=== PATIENT | female | born 2000 | race Caucasian/White ===

== ENCOUNTER 2020-03-12 14:04 | Emergency (ER) | payer BC ==
[2020-03-12 14:26] VITALS: O2SAT 100
[2020-03-12] MEDS ORDERED: TORAdol 30 mg Injection IM ONE (14:43)
[2020-03-12] MEDS ORDERED: Phenergan 25 MG INJ IM ONE (14:44)
--- NOTE | 2020-03-12 14:49 | ERPHSYRPT ---
- History of Present Illness Source: patient Exam Limitations: no limitations Patient Subjective Stated Complaint: pt reports migraine with history. states she woke yesterday at 0400 with pain behind her right and has taken tylenol and naproxen with no relief. pt reports she did see Dr Dick about some issues with anxiety and fatigue possbily related to her oral control 03/09/20 and is wearing a holter monitor at this time. Triage Nursing Assessment: pt is aox3, pupils perrl, afebrile, resps easy and non labored, cap refill < 3 seconds, radial pulses strong and equal, pt skin pink warm dry. Physician History: 19 yo wf w h/o MGHA presents w L frontal ROA x 1+ day. Pain is 7/10 and worse w bright lights/movement/noise. She denies focal weakness/fever/trauma. Symptoms are typical for her ROA's. Timing/Duration: day(s) (1+) Quality: other (Throbbing) Head Pain Location: frontal Severity of Pain-Max: moderate Severity of Pain-Current: moderate Recent Head Trauma: no recent headache/trauma, occasional headaches Modifying Factors: Improves With: exposure to light, movement, noise Associated Symptoms: nausea/vomiting, sensitive to light, No confusion, No dizziness, No fatigue, No facial pain, No fever/chills, No flushing, No light- headedness, No loss of consciousness, No nasal congestion, No nasal drainage, No neck pain, No numbness in legs/feet, No rash, No sweating, No scotoma, No seizures, No sinus infection, No speech problems, No stiff neck, No trouble walking, No vision changes, No visual disturbance, No weakness Previous symptoms: same symptoms as today Allergies/Adverse Reactions: No Known Drug Allergies Allergy (Verified 03/12/20 14:26) Home Medications: Norethindrone-E.estradiol-Iron [Loestrin Fe 1.5-30 Tablet] 1 each PO DAILY 03/12/20 [History] Hx Tetanus, Diphtheria Vaccination/Date Given: Yes Hx Influenza Vaccination/Date Given: No Hx Pneumococcal Vaccination/Date Given: No Immunizations Up to Date: Yes Travel Risk - International Travel Have you traveled outside of the country in past 3 weeks: No - Coronavirus Screening Are you exhibiting any of the following symptoms?: No Close contact with a COVID-19 positive Pt in past 14-21 Days: No - Review of Systems Constitutional: No Symptoms Eyes: Photophobia Ears, Nose, & Throat: No Symptoms Respiratory: No Symptoms Cardiac: No Symptoms Abdominal/Gastrointestinal: No Symptoms Musculoskeletal: No Symptoms Skin: No Symptoms Neurological: Headache Psychological: Anxiety Endocrine: No Symptoms Hematologic/Lymphatic: No Symptoms Immunological/Allergic: No Symptoms - Past Medical History Pertinent Past Medical History: No Neurological History: No Pertinent History ENT History: No Pertinent History Cardiac History: No Pertinent History Respiratory History: No Pertinent History Endocrine Medical History: No Pertinent History Musculoskeletal History: No Pertinent History GI Medical History: No Pertinent History History: No Pertinent History Psycho-Social History: No Pertinent History Female Reproductive Disorders: No Pertinent History - Past Surgical History Past Surgical History: Yes Other Surgical History: tonsils - Social History Smoking Status: Never smoker Exposure to second hand smoke: No Drug Use: none Patient Lives Alone: No Significant Family History: no pertinent family hx - Female History Hx Last Menstrual Period: 03/11/20 Hx Now: No - Nursing Vital Signs Nursing Vital Signs: Initial Vital Signs Temperature 98.1 F 03/12/20 14:15 Pulse Rate 80 03/12/20 14:15 Respiratory Rate 14 03/12/20 14:15 Blood Pressure 139/91 03/12/20 14:15 O2 Sat by Pulse Oximetry 100 03/12/20 14:15 Pain Scale Pain Intensity 7 - Physical Exam General Appearance: no apparent distress Eye Exam: PERRL/EOMI, eyes nml inspection, photophobia Ears, Nose, Throat Exam: normal ENT inspection, TMs normal, pharynx normal, moist mucous membranes Neck Exam: normal inspection, non-tender, supple, full range of motion, No meningismus, No mass, No Brudzinski, No Kernig's, No carotid bruit, No JVD Respiratory Exam: normal breath sounds, lungs clear, airway intact, No respiratory distress Cardiovascular Exam: regular rate/rhythm, normal heart sounds, normal peripheral pulses, No murmur Gastrointestinal/Abdominal Exam: soft, normal bowel sounds, No tenderness Back Exam: normal inspection, normal range of motion, No CVA tenderness, No vertebral tenderness Extremity Exam: normal inspection, normal range of motion Mental Status Exam: alert, oriented x 3, cooperative, No agitated, No uncooperative, 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 hearing, normal speech, PERRL, abnormal eye position, No abnormal gag reflex Coordination/Gait Exam: normal finger to nose, normal gait, normal cerebellar function, negative Romberg's sign Motor/Sensory Exam: no motor deficit, no sensory deficit, no pronator drift, negative Babinski's sign DTR Exam: bicep (R): 2+, bicep (L): 2+, knee (R): 2+, knee (L): 2+ Skin Exam: normal color, warm, dry, No rash Lymphatic Exam: No adenopathy SpO2 Interpretation: normal SpO2: 100 O2 Delivery: Room Air - Course Nursing assessment & vital signs reviewed: Yes Ordered Tests: Medication Summary Discontinued Medications Generic Name Dose Route Start Last Admin Trade Name Sofiya PRN Reason Stop Dose Admin Ketorolac Tromethamine 60 mg 03/12/20 14:43 Toradol 30 Mg Injection IM 03/12/20 14:44 STAT ONE - Progress Progress: improved Progress Note: 03/12/20 14:49 60mg IM Toradol/25mg IM phenergan Counseled pt/family regarding: need for follow-up - Departure Departure Disposition: Home Clinical Impression: Migraine Condition: Stable Critical Care Time: No Referrals: DARON DICK MD [Primary Care Provider] - Instructions: Headache, Adult (DC) Additional Instructions: Return to ER for increasing pain/focal weakness/Temperature greater than 100.5
[2020-03-12] MEDS ORDERED: Phenergan 25 MG INJ ONE (14:59)
[2020-03-12] MEDS ORDERED: TORAdol 30 mg Injection ONE (14:59)
[2020-03-12 15:43] VITALS: BP 113/73; PULSE 70
== END 2020-03-12 15:37 | disposition home or self-care (01) ==
LOC: ED 14:04
DX: G43.909 Migraine, unspecified, not intractable, without status migrainosus (principal)
CPT/HCPCS: 96372; 99284; J1885; J2550

== ENCOUNTER 2020-11-20 14:03 | Emergency (ER) | payer BC ==
[2020-11-20 14:17] VITALS: O2SAT 100
[2020-11-20] MEDS ORDERED: Reglan 10 MG/2 ML IV ONE (14:23)
[2020-11-20] MEDS ORDERED: Dextrose 5% -0.45 NaCl 1000 ML 1,000 ML IV SCH (14:30)
[2020-11-20] MEDS ORDERED: Reglan 10 MG/2 ML ONE (14:31)
[2020-11-20] MEDS ORDERED: Dextrose 5% -0.45 NaCl 1000 ML 1,000 ML IV ONE (14:31)
[2020-11-20 14:33] LABS: Absolute Neutrophil Ct (ANC) 5.32 (1.4-6.9); BASOPHIL % 0.3 % (0.0-0.4); Basophil (Absolute #) 0.02 (0-0.4); Eosinophil % 0.4 % (0.00-5.0); Eosinophil (Absolute #) 0.03 (0-0.5); Hematocrit 35.8 % (35-47); Hemoglobin 11.6 gm/dl (12.0-16.0); Lymphocyte (Absolute #) 1.17 (1.0-4.6); Lymphocytes % 17.1 % (24.0-44.0); Mean Cell Volume 89.9 fl (78-100); Mean Corpuscular Hemoglobin 29.1 pg (26-32); Mean Corpuscular Hgb Concent. 32.4 g/dl (32-36); Mean Platelet Volume 10.6 fl (7.5-11.0); Monocyte (Absolute #) 0.31 (0.0-1.3); Monocytes % 4.5 % (0.0-12.0); Neutrophil % 77.7 % (36.0-66.0); Platelet Count 209 K/mm3 (150-450); Red Blood Count 3.98 M/mm3 (4.1-5.4); Red Cell Distribution Width 14.2 % (11.5-14.0); White Blood Count 6.9 K/mm3 (4.0-10.5)
[2020-11-20 14:43] LABS: ALBUMIN 4.5 g/dL (3.5-5.0); ALKALINE PHOSPHATASE 64 U/L (38-126); ANION GAP 12.8 MEQ/L (5-15); BLOOD UREA NITROGEN 6 mg/dL (7-17); CHLORIDE 103 mmol/L (98-107); Calcium 9.5 mg/dL (8.4-10.2); Carbon Dioxide 24 mmol/L (22-30); Creatinine 1 0.47 mg/dL (0.52-1.04); EST GLOMERULAR FILTRATION RATE > 60.0 ML/MIN; Glucose 77 mg/dL (74-106); Potassium 3.8 mmol/L (3.5-5.1); SGOT/AST 19 U/L (14-36); SGPT/ALT 8 U/L (0-35); SODIUM 136 mmol/L (137-145); Total Protein 7.7 g/dL (6.3-8.2)
--- NOTE | 2020-11-20 14:45 | ERPHSYRPT ---
- History of Present Illness Time Seen by Provider: 11/20/20 14:10 Source: patient Exam Limitations: no limitations Patient Subjective Stated Complaint: Pt stated that she has been vomiting this whole and today she had blood in her vomit, bright red blood Triage Nursing Assessment: Pt brought into the ER by her mom, hypertensive, rates pain as 3 in abdomen from vomiting, states that zofran has quit working on her, Pain with palpatation to the medial lower quadrants, pt has only gained 1 pound this whole Physician History: Patient is a 20-year-old female currently 17 weeks on vitamins presents to our ED for evaluation of blood observed post emesis. Patient states that she has been experiencing nausea and vomiting throughout her with minimal weight gain. Patient called her primary care's office who advised her to come to our ED for an evaluation. Patient currently feels comfortable. No active vomiting. No active pain. Patient has no pelvic pain no vaginal discharge. Patient is here primarily because she feels the Zofran that was given to her earlier during her for nausea and vomiting is not as effective. Patient is otherwise healthy. Patient denies chest pain. No shortness of breath. Mother bedside. They voiced no other complaints concerns at this time. heart tones 130. Timing/Duration: today Severity: mild Modifying Factors: Improves With: other (Vomiting) Associated Symptoms: nausea, vomiting, No abdominal pain Allergies/Adverse Reactions: No Known Drug Allergies Allergy (Verified 11/20/20 14:17) Home Medications: Ondansetron [Ondansetron Odt] 4 mg PO Q8H PRN 11/20/20 [History] Vits W-Ca,Fe,FA(<1Mg) [] 1 each PO DAILY 11/20/20 [History] Hx Tetanus, Diphtheria Vaccination/Date Given: Yes Hx Influenza Vaccination/Date Given: No Hx Pneumococcal Vaccination/Date Given: No Travel Risk - International Travel Have you traveled outside of the country in past 3 weeks: No - Coronavirus Screening Are you exhibiting any of the following symptoms?: No Close contact with a COVID-19 positive Pt in past 14-21 Days: No - Vaccine Status Have you recieved a Covid-19 vaccination: No - Review of Systems Constitutional: No Symptoms, No Fever, No Chills Eyes: No Symptoms Ears, Nose, & Throat: No Symptoms Respiratory: No Symptoms, No Cough, No Dyspnea Cardiac: No Symptoms, No Chest Pain, No Edema, No Syncope Abdominal/Gastrointestinal: No Symptoms, No Abdominal Pain, No Nausea, No Vomiting, No Diarrhea Genitourinary Symptoms: No Symptoms, No Dysuria Musculoskeletal: No Symptoms, No Back Pain, No Neck Pain Skin: No Symptoms, No Rash Neurological: No Symptoms, No Dizziness, No Focal Weakness, No Sensory Changes Psychological: No Symptoms Endocrine: No Symptoms Hematologic/Lymphatic: No Symptoms Immunological/Allergic: No Symptoms All Other Systems: Reviewed and Negative - Past Medical History Pertinent Past Medical History: No Neurological History: No Pertinent History ENT History: No Pertinent History Cardiac History: No Pertinent History Respiratory History: No Pertinent History Endocrine Medical History: No Pertinent History Musculoskeletal History: No Pertinent History GI Medical History: No Pertinent History History: No Pertinent History Psycho-Social History: No Pertinent History Female Reproductive Disorders: No Pertinent History - Past Surgical History Past Surgical History: Yes Other Surgical History: tonsils - Social History Smoking Status: Never smoker Exposure to second hand smoke: No Drug Use: none Patient Lives Alone: No Significant Family History: no pertinent family hx - Female History Hx Now: Yes Expected Date of Delivery: 04/25/21 - Nursing Vital Signs Nursing Vital Signs: Initial Vital Signs Temperature 98.2 F 11/20/20 14:06 Pulse Rate 86 11/20/20 14:06 Blood Pressure 147/82 11/20/20 14:06 O2 Sat by Pulse Oximetry 100 11/20/20 14:06 Pain Scale Pain Intensity 3 - Physical Exam General Appearance: no apparent distress, alert Eye Exam: PERRL/EOMI, eyes nml inspection Ears, Nose, Throat Exam: normal ENT inspection, TMs normal, pharynx normal, moist mucous membranes Neck Exam: normal inspection, non-tender, supple, full range of motion Respiratory Exam: normal breath sounds, lungs clear, No respiratory distress Cardiovascular Exam: regular rate/rhythm, normal heart sounds, normal peripheral pulses Gastrointestinal/Abdomen Exam: soft, normal bowel sounds, No tenderness, No mass Back Exam: normal inspection, normal range of motion, No CVA tenderness, No vertebral tenderness Extremity Exam: normal inspection, normal range of motion, pelvis stable Neurologic Exam: alert, oriented x 3, cooperative, normal mood/affect, nml station & gait, sensation nml, No motor deficits Skin Exam: normal color, warm, dry, No rash Lymphatic Exam: No adenopathy SpO2 Interpretation: normal SpO2: 100 O2 Delivery: Room Air - Course Nursing assessment & vital signs reviewed: Yes Ordered Tests: Active Orders 24 hr Category Date Time Status IV Insertion STAT Care 11/20/20 14:19 Completed CBC W DIFF Stat Lab 11/20/20 14:25 Completed CMP Stat Lab 11/20/20 14:25 Completed MAGNESIUM Stat Lab 11/20/20 14:25 Completed UA W/RFX UR CULTURE Stat Lab 11/20/20 14:29 Completed Medication Summary Discontinued Medications Generic Name Dose Route Start Last Admin Trade Name Freq PRN Reason Stop Dose Admin Dextrose/Sodium Chloride 1,000 mls @ 100 mls/hr 11/20/20 14:30 11/20/20 14:33 Dextrose 5% -0.45 Nacl 1000 Ml IV 12/20/20 14:29 100 mls/hr .Q10H LEON Administration Dextrose/Sodium Chloride Confirm 11/20/20 14:31 Dextrose 5% -0.45 Nacl 1000 Ml Administered 11/20/20 14:32 Dose 1,000 mls @ ud IV .STK-MED ONE Metoclopramide HCl 10 mg 11/20/20 14:23 11/20/20 14:33 Reglan 10 Mg/2 Ml IV 11/20/20 14:24 10 mg STAT ONE Administration Metoclopramide HCl Confirm 11/20/20 14:31 Reglan 10 Mg/2 Ml Administered 11/20/20 14:32 Dose 10 mg .ROUTE .STK-MED ONE Lab/Rad Data: Laboratory Result Diagrams 11/20/20 14:25 11/20/20 14:25 Laboratory Results 11/20/20 11/20/20 11/20/20 Range/Units 14:29 14:25 14:25 WBC (4.0-10.5) K/mm3 RBC (4.1-5.4) M/mm3 Hgb (12.0-16.0) gm/dl Hct (35-47) % MCV (78-100) fl MCH (26-32) pg MCHC (32-36) g/dl RDW (11.5-14.0) % Plt Count (150-450) K/mm3 MPV (7.5-11.0) fl Gran % (36.0-66.0) % Eos # (Auto) (0-0.5) Absolute Lymphs (auto) (1.0-4.6) Absolute Monos (auto) (0.0-1.3) Lymphocytes % (24.0-44.0) % Monocytes % (0.0-12.0) % Eosinophils % (0.00-5.0) % Basophils % (0.0-0.4) % Absolute Granulocytes (1.4-6.9) Basophils # (0-0.4) Sodium 136 L (137-145) mmol/L Potassium 3.8 (3.5-5.1) mmol/L Chloride 103 (98-107) mmol/L Carbon Dioxide 24 (22-30) mmol/L Anion Gap 12.8 (5-15) MEQ/L BUN 6 L (7-17) mg/dL Creatinine 0.47 L (0.52-1.04) mg/dL Estimated GFR > 60.0 ML/MIN Glucose 77 (74-106) mg/dL Calcium 9.5 (8.4-10.2) mg/dL Magnesium 1.6 (1.6-2.3) mg/dL Total Bilirubin 0.50 (0.2-1.3) mg/dL AST 19 (14-36) U/L ALT 8 (0-35) U/L Alkaline Phosphatase 64 (38-126) U/L Serum Total Protein 7.7 (6.3-8.2) g/dL Albumin 4.5 (3.5-5.0) g/dL Urine Color YELLOW (YELLOW) Urine Appearance SLIGHTLY CLOUDY (CLEAR) Urine pH 6.0 (5-6) Ur Specific [place] 1.011 (1.005-1.025) Urine Protein NEGATIVE (Negative) Urine Ketones SMALL (NEGATIVE) Urine Blood NEGATIVE (0-5) Tir[place]/ul Urine Nitrite NEGATIVE (NEGATIVE) Urine Bilirubin NEGATIVE (NEGATIVE) Urine Urobilinogen NEGATIVE (0-1) mg/dL Ur Leukocyte Esterase NEGATIVE (NEGATIVE) Urine WBC (Auto) 3-5 (0-5) /HPF Urine RBC (Auto) 0-2 (0-2) /HPF U Epithel Cells (Auto) MODERATE (FEW) /HPF Urine Bacteria (Auto) FEW (NEGATIVE) /HPF Urine Mucus (Auto) SLIGHT (NEGATIVE) /HPF Urine Culture Reflexed NO (NO) Urine Glucose NEGATIVE (NEGATIVE) mg/dL 11/20/20 Range/Units 14:25 WBC 6.9 (4.0-10.5) K/mm3 RBC 3.98 L (4.1-5.4) M/mm3 Hgb 11.6 L (12.0-16.0) gm/dl Hct 35.8 (35-47) % MCV 89.9 (78-100) fl MCH 29.1 (26-32) pg MCHC 32.4 (32-36) g/dl RDW 14.2 H (11.5-14.0) % Plt Count 209 (150-450) K/mm3 MPV 10.6 (7.5-11.0) fl Gran % 77.7 H (36.0-66.0) % Eos # (Auto) 0.03 (0-0.5) Absolute Lymphs (auto) 1.17 (1.0-4.6) Absolute Monos (auto) 0.31 (0.0-1.3) Lymphocytes % 17.1 L (24.0-44.0) % Monocytes % 4.5 (0.0-12.0) % Eosinophils % 0.4 (0.00-5.0) % Basophils % 0.3 (0.0-0.4) % Absolute Granulocytes 5.32 (1.4-6.9) Basophils # 0.02 (0-0.4) Sodium (137-145) mmol/L Potassium (3.5-5.1) mmol/L Chloride (98-107) mmol/L Carbon Dioxide (22-30) mmol/L Anion Gap (5-15) MEQ/L BUN (7-17) mg/dL Creatinine (0.52-1.04) mg/dL Estimated GFR ML/MIN Glucose (74-106) mg/dL Calcium (8.4-10.2) mg/dL Magnesium (1.6-2.3) mg/dL Total Bilirubin (0.2-1.3) mg/dL AST (14-36) U/L ALT (0-35) U/L Alkaline Phosphatase (38-126) U/L Serum Total Protein (6.3-8.2) g/dL Albumin (3.5-5.0) g/dL Urine Color (YELLOW) Urine Appearance (CLEAR) Urine pH (5-6) Ur Specific [place] (1.005-1.025) Urine Protein (Negative) Urine Ketones (NEGATIVE) Urine Blood (0-5) [place]/ul Urine Nitrite (NEGATIVE) Urine Bilirubin (NEGATIVE) Urine Urobilinogen (0-1) mg/dL Ur Leukocyte Esterase (NEGATIVE) Urine WBC (Auto) (0-5) /HPF Urine RBC (Auto) (0-2) /HPF U Epithel Cells (Auto) (FEW) /HPF Urine Bacteria (Auto) (NEGATIVE) /HPF Urine Mucus (Auto) (NEGATIVE) /HPF Urine Culture Reflexed (NO) Urine Glucose (NEGATIVE) mg/dL - Progress Progress: improved Progress Note: Patient reassessed. Symptoms resolved. Patient is pain-free. No nausea or vomiting at this time. Patient tolerated p.o. intake. Will discharge home. Raymond miranda agrees to follow-up with Dr. Alexis within 48 hours for evaluation. The blood observed after vomiting is likely from throat irritation. Patient's throat is mildly irritated on exam. Other possible concerns with the Rosetta- [place] Rosa tears in [place] syndrome. Patient advised that if bleeding worsens or she develops pain associated with the bleeding and vomiting that she should return to the ER. Patient may need to be scoped if pain and bleeding worsens. Patient voices no other complaints at this time. 11/20/20 15:52 Counseled pt/family regarding: lab results, diagnosis, need for follow-up - Departure Departure Disposition: Home Clinical Impression: Nausea and vomiting during Condition: Stable Critical Care Time: No Referrals: DARON HYATT MD [ACTIVE STAFF] - Instructions: Nausea and Vomiting of (DC) Additional Instructions: Discharge/Care Plan MODESTO ABRAMS was seen on 11/20/20 in the Emergency Room. The patient was counseled regarding Diagnosis,Lab results, Imaging studies, need for follow up and when to return to the Emergency Room. Prescriptions given: Discharge Note I have spoken with the patient and/or caregivers. I have explained the patient's condition, diagnosis and treatment plan based on the information available to me at this time. I have answered the patient's and/or caregiver's questions and addressed any concerns. The patient and/or caregivers have as good understanding of the patient's diagnosis, condition and treatment plan as can be expected at this point. The vital signs have been stable. The patient's condition is stable and appropriate for discharge from the emergency department. The patient will pursue further outpatient evaluation with the primary care physician or other designated or consulting physician as outlined in the discharge instructions. The patient and/or caregivers are agreeable to this plan of care and follow-up instructions have been explained in detail. The patient and/or caregivers have received these instruction. The patient/and or caregivers are aware that any significant change in condition or worsening of symptoms should prompt an immediate return to this or the closest emergency department or call 911.
[2020-11-20 15:25] LABS: Appearance SLIGHTLY CLOUDY (CLEAR); Bacteria FEW /HPF (NEGATIVE); Bilirubin NEGATIVE (NEGATIVE); Blood NEGATIVE Ery/ul (0-5); Epithelial Cells MODERATE /HPF (FEW); Glucose NEGATIVE (NEGATIVE); Ketones SMALL (NEGATIVE); Leukocyte Esterase NEGATIVE (NEGATIVE); Mucus SLIGHT /HPF (NEGATIVE); Nitrite NEGATIVE (NEGATIVE); Protein,Urine Dip NEGATIVE (Negative); RBC 0-2 /HPF (0-2); Specific Gravity 1.011 (1.005-1.025); Urobilinogen NEGATIVE mg/dL (0-1)
[2020-11-20 16:16] VITALS: BP 120/81; PULSE 72
== END 2020-11-20 16:15 | disposition home or self-care (01) ==
LOC: ED 14:03
DX: O21.0 Mild hyperemesis gravidarum (principal); Z3A.17 17 weeks gestation of pregnancy
CPT/HCPCS: 36415; 80053; 81001; 83735; 85025; 96360; 96361; 96374; 99284

== ENCOUNTER 2020-12-18 13:28 | Observation (INO) | payer BC ==
[2020-12-18] MEDS ORDERED: Lactated Ringers 1,000 ML IV ONE (13:59)
[2020-12-18 14:54] VITALS: PULSE 85
[2020-12-18] MEDS ORDERED: Lactated Ringers 1,000 ML IV SCH (15:00)
[2020-12-18 15:02] LABS: ALKALINE PHOSPHATASE 64 U/L (38-126); ANION GAP 12.8 MEQ/L (5-15); BLOOD UREA NITROGEN 5 mg/dL (7-17); CHLORIDE 103 mmol/L (98-107); Calcium 9.1 mg/dL (8.4-10.2); Carbon Dioxide 21 mmol/L (22-30); Creatinine 1 0.32 mg/dL (0.52-1.04); EST GLOMERULAR FILTRATION RATE > 60.0 ML/MIN; Glucose 83 mg/dL (74-106); Potassium 3.6 mmol/L (3.5-5.1); SGOT/AST 20 U/L (14-36); SGPT/ALT 11 U/L (0-35); SODIUM 134 mmol/L (137-145); Total Protein 7.2 g/dL (6.3-8.2)
[2020-12-18 16:18] LABS: Absolute Neutrophil Ct (ANC) 5.67 (1.4-6.9); BASOPHIL % 0.3 % (0.0-0.4); Basophil (Absolute #) 0.02 (0-0.4); Eosinophil (Absolute #) 0.08 (0-0.5); Hematocrit 31.1 % (35-47); Hemoglobin 9.9 gm/dl (12.0-16.0); Lymphocyte (Absolute #) 1.41 (1.0-4.6); Lymphocytes % 18.5 % (24.0-44.0); Mean Cell Volume 92.8 fl (78-100); Mean Corpuscular Hemoglobin 29.6 pg (26-32); Mean Corpuscular Hgb Concent. 31.8 g/dl (32-36); Mean Platelet Volume 11.6 fl (7.5-11.0); Monocyte (Absolute #) 0.46 (0.0-1.3); Neutrophil % 74.2 % (36.0-66.0); Platelet Count 211 K/mm3 (150-450); Red Blood Count 3.35 M/mm3 (4.1-5.4); Red Cell Distribution Width 13.8 % (11.5-14.0); White Blood Count 7.6 K/mm3 (4.0-10.5)
[2020-12-18 16:23] LABS: Appearance CLEAR (CLEAR); Bilirubin NEGATIVE (NEGATIVE); Blood NEGATIVE Ery/ul (0-5); Epithelial Cells RARE /HPF (FEW); Glucose NEGATIVE (NEGATIVE); Ketones TRACE (NEGATIVE); Leukocyte Esterase NEGATIVE (NEGATIVE); Mucus SLIGHT /HPF (NEGATIVE); Nitrite NEGATIVE (NEGATIVE); Protein,Urine Dip NEGATIVE (Negative); Specific Gravity 1.005 (1.005-1.025); Urobilinogen NEGATIVE mg/dL (0-1)
[2020-12-18 16:25] LABS: Bacteria NONE SEEN /HPF (NEGATIVE)
[2020-12-18 16:56] LABS: Amphetamine,Urine NEGATIVE (NEGATIVE); Barbiturate,Urine NEGATIVE (NEGATIVE); Benzodiazepine,Urine NEGATIVE (NEGATIVE); Cocaine,Urine NEGATIVE (NEGATIVE); Methadone,Urine NEGATIVE (NEGATIVE); Opiate,Urine NEGATIVE (NEGATIVE); PCP,Urine NEGATIVE (NEGATIVE); THC,Urine NEGATIVE (NEGATIVE)
== END 2020-12-18 16:45 | disposition home or self-care (01) ==
LOC: OB 13:28
PROVIDERS: ADMIT Family Medicine; ATTEND Family Medicine
DX: Z34.02 Encounter for supervision of normal first pregnancy, second trimester (principal); Z3A.21 21 weeks gestation of pregnancy
CPT/HCPCS: 36415; 80053; 80307; 81001; 85025; G0378

== ENCOUNTER 2020-12-29 16:28 | Observation (INO) | payer BC ==
[2020-12-29 16:59] LABS: Appearance SLIGHTLY CLOUDY (CLEAR); Bacteria MODERATE /HPF (NEGATIVE); Bilirubin NEGATIVE (NEGATIVE); Blood MODERATE Ery/ul (0-5); Glucose NEGATIVE (NEGATIVE); Ketones NEGATIVE (NEGATIVE); Leukocyte Esterase MODERATE (NEGATIVE); Mucus SLIGHT /HPF (NEGATIVE); Nitrite NEGATIVE (NEGATIVE); Protein,Urine Dip 100 (Negative); RBC 0-2 /HPF (0-2); Specific Gravity 1.004 (1.005-1.025); Urobilinogen NEGATIVE mg/dL (0-1)
[2020-12-29 17:12] LABS: Amphetamine,Urine NEGATIVE (NEGATIVE); Barbiturate,Urine NEGATIVE (NEGATIVE); Benzodiazepine,Urine NEGATIVE (NEGATIVE); Cocaine,Urine NEGATIVE (NEGATIVE); Methadone,Urine NEGATIVE (NEGATIVE); Opiate,Urine NEGATIVE (NEGATIVE); PCP,Urine NEGATIVE (NEGATIVE); THC,Urine NEGATIVE (NEGATIVE)
[2020-12-29 17:43] VITALS: BP 109/74; PULSE 76
== END 2020-12-29 17:43 | disposition home or self-care (01) ==
LOC: OB 16:28
PROVIDERS: ADMIT Family Medicine; ATTEND Family Medicine
DX: O26.892 Other specified pregnancy related conditions, second trimester (principal); Z3A.23 23 weeks gestation of pregnancy; M54.9 Dorsalgia, unspecified; R10.9 Unspecified abdominal pain
CPT/HCPCS: 80307; 81001; 87086; G0378

== ENCOUNTER 2021-02-26 13:01 | Emergency (ER) | payer BC, OTHER ==
[2021-02-26] MEDS ORDERED: Sodium Chloride 0.9% 1000 ML 1,000 ML IV STA (13:14)
[2021-02-26] MEDS ORDERED: GI COCKTAIL 45 ML (Maalox/Lidocaine) PO ONE (13:16)
[2021-02-26] MEDS ORDERED: XYLOCAINE HCl Viscous ONE (13:22)
[2021-02-26] MEDS ORDERED: MAALOX ES 30 ML UNIT DOSE ONE (13:23)
[2021-02-26 13:34] VITALS: O2SAT 98
[2021-02-26 13:44] LABS: Hematocrit 28.1 % (35-47); Hemoglobin 8.9 gm/dl (12.0-16.0); Mean Cell Volume 87.8 fl (78-100); Mean Corpuscular Hemoglobin 27.8 pg (26-32); Mean Corpuscular Hgb Concent. 31.7 g/dl (32-36); Mean Platelet Volume 11.6 fl (7.5-11.0); Platelet Count 176 K/mm3 (150-450); White Blood Count 8.4 K/mm3 (4.0-10.5)
[2021-02-26 14:12] VITALS: BP 117/67; PULSE 84
[2021-02-26 14:12] LABS: Appearance CLEAR (CLEAR); Bilirubin NEGATIVE (NEGATIVE); Blood NEGATIVE Ery/ul (0-5); Epithelial Cells RARE /HPF (FEW); Glucose NEGATIVE (NEGATIVE); Ketones NEGATIVE (NEGATIVE); Leukocyte Esterase LARGE (NEGATIVE); Nitrite NEGATIVE (NEGATIVE); Protein,Urine Dip NEGATIVE (Negative); Specific Gravity 1.004 (1.005-1.025); Urobilinogen NEGATIVE mg/dL (0-1)
--- NOTE | 2021-02-26 14:13 | ERPHSYRPT ---
- History of Present Illness Time Seen by Provider: 02/26/21 13:15 Historian: patient Exam Limitations: no limitations Patient Subjective Stated Complaint: C/O mid sternal chest pain. Denies SOB but states, "it just feels like I can't take a deep breath." Indicates pain is slightly worse if/when she bends over. State she was just sitting home on her computer when the pain started. Last ate at 0900; ate peanut butter crackers. Triage Nursing Assessment: Patient ambulated into hospital and ER without difficulties. No SOB or labored breathing noted. Skin C/D/I and normal in color. Apical heart rate regular. Lungs clear. No edema. Physician History: Patient is a 20-year-old 1 para 0 AB 0 who presents at 31 weeks gestation with a complaint of substernal chest pain for 2 hours. The pain is worse with a deep breath worse with laying back. She has had no shortness of breath but feels like it is hard to take a deep breath she has no nausea vomiting or diarrhea she is worse with bending over. She had an ultrasound to 24 weeks which was fairly normal. Timing/Duration: today Activities at Onset: none Quality: pressure Location: substernal Chest Pain Radiation: no radiation Severity of Pain-Max: moderate Severity of Pain-Current: mild Modifying Factors: Improves With: lying down, movement Associated Symptoms: heartburn, hurts to breathe Prior Chest Pain/Cardiac Workup: no prior chest pain Nitro Today/Relief: no nitro taken today Aspirin Treatment Today: no aspirin today Allergies/Adverse Reactions: No Known Drug Allergies Allergy (Verified 12/29/20 16:44) Home Medications: Vits W-Ca,Fe,FA(<1Mg) [] 1 each PO DAILY 11/20/20 [History] Ferrous Sulfate [Iron] 325 mg PO BID 12/29/20 [History] Hx Tetanus, Diphtheria Vaccination/Date Given: Yes Hx Influenza Vaccination/Date Given: No Hx Pneumococcal Vaccination/Date Given: No Immunizations Up to Date: Yes Travel Risk - International Travel Have you traveled outside of the country in past 3 weeks: No - Coronavirus Screening Are you exhibiting any of the following symptoms?: No Close contact with a COVID-19 positive Pt in past 14-21 Days: No - Vaccine Status Have you recieved a Covid-19 vaccination: No - Review of Systems Constitutional: No Fever, No Chills Eyes: No Symptoms Ears, Nose, & Throat: No Symptoms Respiratory: No Cough, No Dyspnea Cardiac: No Chest Pain, No Edema, No Syncope Abdominal/Gastrointestinal: No Abdominal Pain, No Nausea, No Vomiting, No Diarrhea Genitourinary Symptoms: No Dysuria Musculoskeletal: No Back Pain, No Neck Pain Skin: No Rash Neurological: No Dizziness, No Focal Weakness, No Sensory Changes Psychological: No Symptoms Endocrine: No Symptoms All Other Systems: Reviewed and Negative - Past Medical History Pertinent Past Medical History: No Neurological History: No Pertinent History ENT History: No Pertinent History Cardiac History: No Pertinent History Respiratory History: No Pertinent History Endocrine Medical History: No Pertinent History Musculoskeletal History: No Pertinent History GI Medical History: No Pertinent History History: No Pertinent History Psycho-Social History: No Pertinent History Female Reproductive Disorders: No Pertinent History Other Medical History: States she wore a holter monitor approx 2 years ago for a week and that this didn't indicate anything but "an occassional irregular beat." - Past Surgical History Past Surgical History: Yes Neuro Surgical History: No Pertinent History Cardiac: No Pertinent History Respiratory: No Pertinent History Gastrointestinal: No Pertinent History Genitourinary: No Pertinent History Musculoskeletal: No Pertinent History Female Surgical History: No Pertinent History Other Surgical History: Removal of a fatty tumor to the back of her head. - Social History Smoking Status: Never smoker Exposure to second hand smoke: No Drug Use: none Patient Lives Alone: No Significant Family History: no pertinent family hx - Female History Hx Now: Yes Gestational Age: 31 weeks - Nursing Vital Signs Nursing Vital Signs: Initial Vital Signs Temperature 98.5 F 02/26/21 13:03 Pulse Rate 83 02/26/21 13:03 Respiratory Rate 15 02/26/21 13:03 Blood Pressure 117/76 02/26/21 13:03 O2 Sat by Pulse Oximetry 98 02/26/21 13:03 Pain Scale Pain Intensity 4 - Physical Exam General Appearance: mild distress, alert Eye Exam: PERRL/EOMI, eyes nml inspection Ears, Nose, Throat Exam: normal ENT inspection, moist mucous membranes Neck Exam: normal inspection, non-tender, supple, full range of motion Respiratory Exam: normal breath sounds, lungs clear, No respiratory distress Cardiovascular Exam: regular rate/rhythm, normal heart sounds Gastrointestinal/Abdomen Exam: soft, other (Gravid uterus heart tones positive), No tenderness, No mass Back Exam: normal inspection, No CVA tenderness, No vertebral tenderness Extremity Exam: normal inspection, normal range of motion Neurologic Exam: alert, oriented x 3, cooperative, normal mood/affect, sensation nml, No motor deficits Skin Exam: normal color, warm, dry SpO2: 98 - Course Nursing assessment & vital signs reviewed: Yes EKG Interpreted by Me: RATE (77), Sinus Rhythm, NORMAL AXIS, NORMAL INTERVALS, NORMAL QRS, NORMAL ST-T Ordered Tests: Active Orders 24 hr Category Date Time Status EKG-ER Only STAT Care 02/26/21 13:14 Active AMYLASE Stat Lab 02/26/21 13:22 Received CBC W DIFF Stat Lab 02/26/21 13:22 Completed CMP Stat Lab 02/26/21 13:22 Received LIPASE Stat Lab 02/26/21 13:22 Received Lactic Acid Stat Lab 02/26/21 13:25 Completed Manual Differential NC Stat Lab 02/26/21 13:22 Completed PROTIME WITH INR Stat Lab 02/26/21 13:22 Received UA W/RFX UR CULTURE Stat Lab 02/26/21 13:19 Ordered Medication Summary Discontinued Medications Generic Name Dose Route Start Last Admin Trade Name Freq PRN Reason Stop Dose Admin Al Hydrox/Mg Hydrox/Simethicone Confirm 02/26/21 13:23 Maalox Es 30 Ml Unit Dose Administered 02/26/21 13:24 Dose 30 ml .ROUTE .STK-MED ONE Sodium Chloride 1,000 mls @ 999 mls/hr 02/26/21 13:14 02/26/21 14:04 Sodium Chloride 0.9% 1000 Ml IV 02/26/21 14:14 Not Given .Q1H1M STA Lidocaine HCl Confirm 02/26/21 13:22 Xylocaine Hcl Viscous * Administered 02/26/21 13:23 Dose 15 ml .ROUTE .STK-MED ONE Magnesium Hydroxide 25 ml 02/26/21 13:16 02/26/21 13:27 Gi Cocktail 45 Ml (Maalox/Lidocaine) PO 02/26/21 13:17 25 ml STAT ONE Administration Lab/Rad Data: Laboratory Result Diagrams 02/26/21 13:22 Laboratory Results 02/26/21 02/26/21 Range/Units 13:25 13:22 WBC 8.4 (4.0-10.5) K/mm3 RBC 3.20 L (4.1-5.4) M/mm3 Hgb 8.9 L (12.0-16.0) gm/dl Hct 28.1 L (35-47) % MCV 87.8 (78-100) fl MCH 27.8 (26-32) pg MCHC 31.7 L (32-36) g/dl RDW 13.0 (11.5-14.0) % Plt Count 176 (150-450) K/mm3 MPV 11.6 H (7.5-11.0) fl Lactic Acid 0.9 (0.4-2.0) - Progress Progress: improved Air Movement: good Blood Culture(s) Obtained: No Antibiotics given: No - Departure Departure Disposition: Transfer (Transfer to OB) Clinical Impression: 31 weeks gestation of , Esophagitis Condition: Stable Critical Care Time: No Referrals: MAYURI RUIZ MD [Primary Care Provider] - Instructions: Acid Reflux and GERD in Adults (DC)
[2021-02-26 14:14] LABS: ALBUMIN 3.9 g/dL (3.5-5.0); ALKALINE PHOSPHATASE 143 U/L (38-126); AMYLASE 62 U/L (30-110); BLOOD UREA NITROGEN 3 mg/dL (7-17); CHLORIDE 106 mmol/L (98-107); Carbon Dioxide 21 mmol/L (22-30); Creatinine 1 0.33 mg/dL (0.52-1.04); EST GLOMERULAR FILTRATION RATE > 60.0 ML/MIN; Glucose 88 mg/dL (74-106); LIPASE 48 U/L (23-300); SGOT/AST 19 U/L (14-36); SGPT/ALT 11 U/L (0-35); SODIUM 135 mmol/L (137-145); Total Protein 7.1 g/dL (6.3-8.2)
[2021-02-26 14:32] LABS: INR 1.01 (0.8-3.0); PROTIME 11.9 SECONDS (9.4-12.5)
[2021-02-26 14:37] LABS: Bacteria FEW /HPF (NEGATIVE)
[2021-02-26 16:59] LABS: Eosinophil 2 % (0.00-3.0); Lymphocytes 33 % (24-44); Monocyte 3 % (0.0-12.0); Neutrophils 62 % (36.0-66.0); Platelet Estimate NORMAL (NORMAL); Total Cells Counted 100
== END 2021-02-26 14:43 | disposition critical access hospital (66) ==
LOC: ED 13:01
DX: O26.893 Other specified pregnancy related conditions, third trimester (principal); K20.90 Esophagitis, unspecified without bleeding; Z3A.31 31 weeks gestation of pregnancy; R07.89 Other chest pain
CPT/HCPCS: 36415; 80053; 81001; 82150; 83605; 83690; 84484; 85025; 85610; 87086; 93005; 99284; A9270-GY

== ENCOUNTER 2021-02-26 14:40 | Observation (INO) | payer BC, OTHER ==
[2021-02-26] MEDS ORDERED: Sodium Chloride 0.9% 1000 ML 1,000 ML IV STA (15:18)
[2021-02-26] MEDS ORDERED: Sodium Chloride 0.9% 1000 ML 1,000 ML IV SCH (15:30)
[2021-02-26] MEDS ORDERED: BRETHINE 1 MG/ML SQ ONE ×2 (16:41→21:54)
[2021-02-26] MEDS ORDERED: Celestone Soluspan 6MG/ML IM ONE (17:57)
[2021-02-26] MEDS ORDERED: PROCARDIA 10 MG PO ONE ×2 (17:58→20:52)
[2021-02-26] MEDS ORDERED: Diflucan 100 MG PO ONE (17:59)
[2021-02-26] MEDS ORDERED: Celestone Soluspan 6MG/ML ONE (18:10)
[2021-02-26] MEDS ORDERED: PROCARDIA 10 MG ONE ×2 (18:10→20:53)
[2021-02-26 18:54] LABS: Amphetamine,Urine NEGATIVE (NEGATIVE); Barbiturate,Urine NEGATIVE (NEGATIVE); Benzodiazepine,Urine NEGATIVE (NEGATIVE); Cocaine,Urine NEGATIVE (NEGATIVE); Methadone,Urine NEGATIVE (NEGATIVE); Opiate,Urine NEGATIVE (NEGATIVE); PCP,Urine NEGATIVE (NEGATIVE); THC,Urine NEGATIVE (NEGATIVE)
[2021-02-26] MEDS ORDERED: BRETHINE 1 MG/ML ONE (21:55)
[2021-02-26] MEDS ORDERED: Magnesium Sulfate 40 Gm/1000 Ml H2O Premix*** 1,000 ML IV SCH (23:45)
[2021-02-26] MEDS ORDERED: Lactated Ringers 1,000 ML IV SCH ×2 (23:45)
[2021-02-26] MEDS ORDERED: Magnesium Sulfate 40 Gm/1000 Ml H2O Premix*** 1,000 ML IV ONE (23:51)
[2021-02-26] MEDS ORDERED: Lactated Ringers 1,000 ML IV ONE (23:51)
[2021-02-27] MEDS ORDERED: Rocephin 1000 MG INJ IM ONE (00:24)
[2021-02-27] MEDS ORDERED: Rocephin 1000 MG INJ ONE (00:26)
[2021-02-27] MEDS ORDERED: XYLOCAINE 1% HCL 20 ML MDV ONE (00:29)
[2021-02-27 00:51] LABS: INR 0.94 (0.8-3.0); PROTIME 11.1 SECONDS (9.4-12.5)
[2021-02-27 00:54] LABS: PTT 26.2 SECONDS (25.1-36.5)
[2021-02-27 00:56] LABS: ALBUMIN 4.1 g/dL (3.5-5.0); ALKALINE PHOSPHATASE 175 U/L (38-126); ANION GAP 14.9 MEQ/L (5-15); BLOOD UREA NITROGEN 3 mg/dL (7-17); CHLORIDE 107 mmol/L (98-107); Calcium 8.7 mg/dL (8.4-10.2); Creatinine 1 0.34 mg/dL (0.52-1.04); EST GLOMERULAR FILTRATION RATE > 60.0 ML/MIN; Glucose 152 mg/dL (74-106); MAGNESIUM 4.2 mg/dL (1.6-2.3); Potassium 3.4 mmol/L (3.5-5.1); SGOT/AST 22 U/L (14-36); SGPT/ALT 15 U/L (0-35); SODIUM 134 mmol/L (137-145); Total Protein 7.5 g/dL (6.3-8.2)
--- NOTE | 2021-02-27 01:03 | PCM.SSS ---
History of Present Illness - Chief Complaint Chief Complaint: OB CHECK History of Present Illness: is a 20 year old female pt of Dr. Ruiz at 31w 4d who was admitted through ER and is now in OB with labor. She had chest pain earlier in the evening and was ruled out in ER with negative troponin. Chest pain had been epigastric and resolved with the "GI cocktail" in ER. Her Hgb was found to be 8.9. She was moved to labor room where she was found to be aj regularly. Her cervix was closed. FHT were Cat I. She was given LR one L in a bolus, followed by terbutaline 0.25mg SQ with good results temporarily. Was started on procardia 10mg po. Betamethasone 12mg was given IM. She was noted to have some small contractions again and was given terbutaline 0.25mg SQ a second time; when she started aj again afterward, she complained of some spotting, had SVE, and her cervix had gone from 0/100/-3 at 1745 to 1-2/50/-1 at 11:45. I was called to come in as magnesium sulfate was started, 4g in a bolus then 2g/hr. Her UA was neg for nitrates, pos for leukocytes with WBC 3-5, RBC 3-5, and rare epithelial cells. One g Rocephin has been given IM. Her LR is now running at 100mL/hr. Her Hgb was found to be 8.9 in ER. She denies any issues this aside from initial morning sickness and anemia (pt was on po iron). She has no pre-existing medical conditions. Had a history of remote tonsillectomy. Blood type A-, with rhogam having been given on 02/07/21. Rubella non-immune. otherwise labs normal. One hour OGTT was 88. GBS status is unknown. I spoke with MFM at [facility] and they will accept the patient in transfer, thank you. She will be given penicillin for GBS unknown status. Covid testing is being done before air transport arrives. Of note, pt's CO2 result was just called and is 16. Lactic acid and ABG are being drawn. - Review of Systems Cardiac: Chest Pain (resolved), Palpitations (after terbutaline) Psychological: Anxiety, No Depression, No Suicidal Ideations All Other Systems: Reviewed and Negative Medications & Allergies Home Medications: Home Medication List Vits W-Ca,Fe,FA(<1Mg) [] 1 each PO DAILY 11/20/20 [History Confirmed 02/26/21] Ferrous Sulfate [Iron] 325 mg PO BID 12/29/20 [History Confirmed 02/26/21] Nifedipine 10 mg [Procardia 10 mg] 10 mg PO TID 7 Days #21 tab 02/26/21 [Rx] Allergies/Adverse Reactions: Allergies Allergy/AdvReac Type Severity Reaction Status Date / Time No Known Drug Allergies Allergy Verified 12/29/20 16:44 - Past Medical History Past Medical History: No Neurological History: No Pertinent History ENT History: No Pertinent History Cardiac History: No Pertinent History Respiratory History: No Pertinent History Endocrine Medical History: No Pertinent History Musculoskelatal History: No Pertinent History GI Medical History: No Pertinent History History: No Pertinent History Pyscho-Social History: No Pertinent History Reproductive Disorders: No Pertinent History Comment: States she wore a holter monitor approx 2 years ago for a week and that this didn't indicate anything but "an occassional irregular beat." - Female History Expected Date of Delivery: 04/25/21 - Past Surgical History Past Surgical History: Yes Neuro Surgical History: No Pertinent History Cardiac History: No Pertinent History Respiratory Surgery: No Pertinent History GI Surgical History: No Pertinent History Genitourinary Surgical Hx: No Pertinent History Musculskeletal Surgical Hx: No Pertinent History Female Surgical History: No Pertinent History Other Surgical History: Removal of a fatty tumor to the back of her head. - Social History Smoking Status: Never smoker Exposure to second hand smoke: No Alcohol: None Drug Use: none Significant Family History: no pertinent family hx - Physical Exam Vital Signs: Vital Signs - 24 hr Temp Pulse Resp BP BP Pulse Ox 02/26/21 22:00 98.4 F 100 H 18 132/74 02/26/21 18:00 90 18 122/61 02/26/21 15:47 98.4 F 86 18 110/55 96 02/26/21 14:40 98.4 F 86 18 110/55 96 General Appearance: no apparent distress, alert Neurologic Exam: oriented x 3, cooperative, normal mood/affect Eye Exam: eyes nml inspection Ears, Nose, Throat Exam: moist mucous membranes Neck Exam: normal inspection Respiratory Exam: normal breath sounds, lungs clear, No crackles/rales, No rhonchi, No wheezing Cardiovascular Exam: normal heart sounds, other (tachycardic, reg rhythm), No murmur Gastrointestinal/Abdomen Exam: normal bowel sounds, other (gravid) Back Exam: normal inspection, No rash Extremity Exam: normal inspection, No pedal edema, No swelling Skin Exam: normal color, warm, dry, No rash Results - Labs Lab/Micro Results: Lab Results-Last 24 Hours 02/26/21 02/26/21 Range/Units 15:37 16:12 Urine Opiates Level NEGATIVE (NEGATIVE) Ur Methadone NEGATIVE (NEGATIVE) Urine Barbiturates NEGATIVE (NEGATIVE) Ur Phencyclidine (PCP) NEGATIVE (NEGATIVE) Urine Amphetamine NEGATIVE (NEGATIVE) U Benzodiazepine Level NEGATIVE (NEGATIVE) Urine Cocaine NEGATIVE (NEGATIVE) Urine Marijuana (THC) NEGATIVE (NEGATIVE) Fibronectin SEE SEPARATE REPORT Assessment/Plan (1) labor Current Visit: Yes Status: Acute Qualifiers: labor trimester: third trimester Fetus number: single or unspecified fetus Assessment & Plan: Pt with contractions and cervical change. Transferring to OB at [facility]. Has been given Betamethasone 12mg IM x 1. GBS is pending, and first dose of ampicillin has been ordered. Covid test is pending. Currently on MgSO4 at 2g/hr, after having been given 4g bolus. Code(s): O60.00 - LABOR WITHOUT DELIVERY, UNSPECIFIED TRIMESTER (2) 31 weeks gestation of Current Visit: No Status: Chronic Code(s): Z3A.31 - 31 WEEKS GESTATION OF (3) Anemia Current Visit: Yes Status: Acute Qualifiers: Anemia type: iron deficiency Iron deficiency anemia type: inadequate dietary iron intake Qualified Code(s): D50.8 - Other iron deficiency anemias Code(s): D64.9 - ANEMIA, UNSPECIFIED Hospital Summary - Hospital Course Hospital Course: Pt is 20 yo at 31w 4d, pt of Dr. Ruiz, who was admitted through ER, transferred to labor room, and found to be in labor. She is now on MgSO4 and will be transferred to [facility] via air transport. - Vitals & Intake/Output Vital Signs: Vital Signs Temperature 98.4 F 02/26/21 22:00 Pulse Rate 100 H 02/26/21 22:00 Respiratory Rate 18 02/26/21 22:00 Blood Pressure 132/74 02/26/21 22:00 O2 Sat by Pulse Oximetry 96 02/26/21 15:47 Intake & Output: Intake & Output 02/24/21 02/25/21 02/26/21 02/27/21 11:59 11:59 11:59 11:59 Intake Total 1500 Balance 1500 Weight 75.1 kg - Lab Lab Results-Last 24 Hrs: Lab Results-Last 24 Hours 02/26/21 02/26/21 Range/Units 15:37 16:12 Urine Opiates Level NEGATIVE (NEGATIVE) Ur Methadone NEGATIVE (NEGATIVE) Urine Barbiturates NEGATIVE (NEGATIVE) Ur Phencyclidine (PCP) NEGATIVE (NEGATIVE) Urine Amphetamine NEGATIVE (NEGATIVE) U Benzodiazepine Level NEGATIVE (NEGATIVE) Urine Cocaine NEGATIVE (NEGATIVE) Urine Marijuana (THC) NEGATIVE (NEGATIVE) Fibronectin SEE SEPARATE REPORT - Discharge Disposition: XFER OTHER Condition: Stable Prescriptions: New Nifedipine 10 mg [Procardia 10 mg] 10 mg PO TID 7 Days #21 tab No Action Vits W-Ca,Fe,FA(<1Mg) [] 1 each PO DAILY Ferrous Sulfate [Iron] 325 mg PO BID Follow up with: MAYURI RUIZ MD [Primary Care Provider] -
[2021-02-27 01:09] LABS: Carbon Dioxide 16 mmol/L (22-30)
[2021-02-27] MEDS ORDERED: OMNIPEN 2 GM*** 2 G in Sodium Chloride 100ML MINI-BAG PLUS 100 ML IV SCH (01:15)
[2021-02-27] MEDS ORDERED: OMNIPEN 2 GM ONE (01:16)
[2021-02-27] MEDS ORDERED: Sodium Chloride 100ML MINI-BAG PLUS 100 ML IV ONE (01:16)
[2021-02-27 01:26] LABS: A-aADO2 3; ABG HEMOGLOBIN 9.9; ABG POTASSIUM 3.4 (3.5-5.1); ABG SITE RIGHT RADIAL; ALLEN TEST OK? YES; ARTERIAL BLD GAS O2 SATURATION 99.5 % (95-100); ARTERIAL BLOOD GAS BASE EXCESS -6.1 (-2.0-2.0); ARTERIAL BLOOD GAS FIO2 21 %; ARTERIAL BLOOD GAS PCO2 28 mmHg (35-45); ARTERIAL BLOOD GAS PO2 112 mmHg (75-100); HCO3- 17.3 (22-28); HGB O2 SAT 97.5 g/dF (94-100)
[2021-02-27 02:18] VITALS: BP 130/71; PULSE 111; O2SAT 97
== END 2021-02-27 02:50 | disposition short-term general hospital (02) ==
LOC: OB 14:40
PROVIDERS: ADMIT Family Medicine; ATTEND Family Medicine
DX: O60.03 Preterm labor without delivery, third trimester (principal); Z3A.31 31 weeks gestation of pregnancy; D64.9 Anemia, unspecified; Z20.822 Contact with and (suspected) exposure to COVID-19
CPT/HCPCS: 36415; 36600; 80053; 80307; 82375; 82731; 82803; 83605; 83735; 85610; 85730; 87081; 96372; G0378; U0003; J0290; J0696; J0702; A9270-GY

== ENCOUNTER 2021-04-07 22:05 | Observation (INO) | payer BC, OTHER ==
[2013-02-27 01:10] VITALS: BP 114/72
[2021-04-08 00:28] LABS: Appearance SLIGHTLY CLOUDY (CLEAR); Bacteria MODERATE /HPF (NEGATIVE); Bilirubin NEGATIVE (NEGATIVE); Blood SMALL Ery/ul (0-5); Epithelial Cells RARE /HPF (FEW); Glucose NEGATIVE (NEGATIVE); Ketones NEGATIVE (NEGATIVE); Leukocyte Esterase MODERATE (NEGATIVE); Nitrite NEGATIVE (NEGATIVE); Protein,Urine Dip NEGATIVE (Negative); Specific Gravity 1.004 (1.005-1.025); Urobilinogen NEGATIVE mg/dL (0-1)
[2021-04-08 00:30] LABS: Barbiturate,Urine NEGATIVE (NEGATIVE); Benzodiazepine,Urine NEGATIVE (NEGATIVE); Cocaine,Urine NEGATIVE (NEGATIVE); Methadone,Urine NEGATIVE (NEGATIVE); Opiate,Urine NEGATIVE (NEGATIVE); PCP,Urine NEGATIVE (NEGATIVE); THC,Urine NEGATIVE (NEGATIVE)
[2021-04-08 00:33] LABS: Amphetamine,Urine NEGATIVE (NEGATIVE)
[2021-04-08] MEDS ORDERED: Nubain 10 MG/ML IV PRN (00:33)
[2021-04-08] MEDS ORDERED: TYLENOL EXTRA STRENGTH 500 MG PO PRN (00:33)
[2021-04-08] MEDS ORDERED: Zofran 4 MG/2 ML VIAL IV PRN (00:33)
[2021-04-08 01:11] LABS: Absolute Neutrophil Ct (ANC) 6.68 (1.4-6.9); BASOPHIL % 0.4 % (0.0-0.4); Basophil (Absolute #) 0.04 (0-0.4); Eosinophil % 0.4 % (0.00-5.0); Eosinophil (Absolute #) 0.04 (0-0.5); Hemoglobin 8.1 gm/dl (12.0-16.0); Lymphocyte (Absolute #) 1.82 (1.0-4.6); Mean Cell Volume 81.8 fl (78-100); Mean Corpuscular Hemoglobin 24.5 pg (26-32); Mean Platelet Volume 12.8 fl (7.5-11.0); Monocyte (Absolute #) 0.52 (0.0-1.3); Monocytes % 5.7 % (0.0-12.0); Neutrophil % 73.5 % (36.0-66.0); Platelet Count 147 K/mm3 (150-450); Red Cell Distribution Width 14.9 % (11.5-14.0); White Blood Count 9.1 K/mm3 (4.0-10.5)
[2021-04-08 02:49] LABS: ABO TYPING A; RH TYPING NEGATIVE
[2021-04-08 02:50] LABS: Antibody Screen POSITIVE (NEGATIVE)
[2021-04-08] MEDS ORDERED: PITOCIN 30 UNITS/ LR 500 ML 30 UNITS/500 ML IV.SOLN. IV SCH (08:00)
[2021-04-08] MEDS ORDERED: Lactated Ringers 1,000 ML IV SCH (08:00)
[2021-04-08] MEDS ORDERED: XYLOCAINE 1% HCL 20 ML MDV IJ PRN (08:00)
[2021-04-09 11:33] LABS: HBsAg Screen Negative (Negative)
== END 2021-04-08 15:05 | disposition home or self-care (01) ==
LOC: OB 22:05 → OBSVTOIN 04-08 03:00 → INTOOBSV 04-08 03:00
PROVIDERS: ADMIT Family Medicine; ATTEND Family Medicine
DX: Z34.03 Encounter for supervision of normal first pregnancy, third trimester (principal); Z3A.37 37 weeks gestation of pregnancy
CPT/HCPCS: 36415; 80307; 81001; 85025; 86850; 86870; 86900; 86901; 87086; 87340; G0378

== ENCOUNTER 2021-04-09 22:40 | Inpatient (IN) | payer BC, OTHER ==
[2013-02-27 01:10] VITALS: BP 114/72
[2021-04-09] MEDS ORDERED: Lactated Ringers 1,000 ML IV ONE ×2 (23:17→23:30)
[2021-04-09] MEDS ORDERED: Zofran 4 MG/2 ML VIAL IV PRN (23:19)
[2021-04-09] MEDS ORDERED: Nubain 10 MG/ML IV PRN (23:19)
[2021-04-09 23:26] LABS: Amphetamine,Urine NEGATIVE (NEGATIVE); Barbiturate,Urine NEGATIVE (NEGATIVE); Benzodiazepine,Urine NEGATIVE (NEGATIVE); Cocaine,Urine NEGATIVE (NEGATIVE); Methadone,Urine NEGATIVE (NEGATIVE); Opiate,Urine NEGATIVE (NEGATIVE); PCP,Urine NEGATIVE (NEGATIVE); THC,Urine NEGATIVE (NEGATIVE)
[2021-04-09] MEDS ORDERED: PITOCIN 30 UNITS/ LR 500 ML 30 UNITS/500 ML IV.SOLN. IV SCH (23:30)
[2021-04-09] MEDS ORDERED: Lactated Ringers 1,000 ML IV SCH (23:30)
[2021-04-09] MEDS ORDERED: XYLOCAINE 1% HCL 20 ML MDV IJ PRN (23:30)
[2021-04-09 23:35] LABS: Absolute Neutrophil Ct (ANC) 8.14 (1.4-6.9); BASOPHIL % 0.5 % (0.0-0.4); Basophil (Absolute #) 0.06 (0-0.4); Eosinophil % 0.3 % (0.00-5.0); Eosinophil (Absolute #) 0.03 (0-0.5); Hematocrit 28.1 % (35-47); Hemoglobin 8.4 gm/dl (12.0-16.0); Lymphocyte (Absolute #) 2.13 (1.0-4.6); Lymphocytes % 19.2 % (24.0-44.0); Mean Cell Volume 81.9 fl (78-100); Mean Corpuscular Hemoglobin 24.5 pg (26-32); Mean Corpuscular Hgb Concent. 29.9 g/dl (32-36); Mean Platelet Volume 12.1 fl (7.5-11.0); Monocyte (Absolute #) 0.76 (0.0-1.3); Monocytes % 6.8 % (0.0-12.0); Neutrophil % 73.2 % (36.0-66.0); Platelet Count 137 K/mm3 (150-450); Red Blood Count 3.43 M/mm3 (4.1-5.4); Red Cell Distribution Width 14.9 % (11.5-14.0); White Blood Count 11.1 K/mm3 (4.0-10.5)
[2021-04-09] MEDS ORDERED: PITOCIN 30 UNITS/ LR 500 ML 500 ML IV ONE (23:35)
[2021-04-10] MEDS ORDERED: Ephedrine Sulfate 50 MG/ML IV PRN
[2021-04-10] MEDS ORDERED: Lactated Ringers 1,000 ML IV ONE ×2 (00:19→01:18)
[2021-04-10] MEDS ORDERED: Vitamin K 1 MG ONE (00:38)
[2021-04-10] MEDS ORDERED: Erythromycin 1 GM ONE (00:38)
[2021-04-10 00:40] LABS: ABO TYPING A; RH TYPING NEGATIVE
[2021-04-10 00:42] LABS: Antibody Screen POSITIVE (NEGATIVE)
[2021-04-10] MEDS ORDERED: OB EPIDURAL NAROPIN/SUFENTANIL IN NACL EPIDURAL PRN (01:20)
[2021-04-10] MEDS ORDERED: Anucort-HC SUPPOSITORY PR PRN (01:40)
[2021-04-10] MEDS ORDERED: NORCO 5/325 MG PO PRN (01:40)
[2021-04-10] MEDS ORDERED: Ambien 10 MG PO PRN (01:40)
[2021-04-10] MEDS ORDERED: CORTISONE 1% CREAM TP PRN (01:40)
[2021-04-10] MEDS ORDERED: Dermoplast Spray TP PRN (01:40)
[2021-04-10] MEDS ORDERED: Mylicon 80MG PO PRN (01:40)
[2021-04-10] MEDS ORDERED: LANSINOH 40 GM TOP PRN (01:40)
[2021-04-10] MEDS ORDERED: Dulcolax 10 MG SUPP PR PRN (01:40)
[2021-04-10] MEDS ORDERED: XYLOCAINE 1% HCL 20 ML MDV ONE (01:45)
[2021-04-10] MEDS ORDERED: TUCKS TP ONE (03:18)
[2021-04-10] MEDS: MOTRIN 400 MG PO PRN ×3 (03:20→21:03)
[2021-04-10] MEDS: TUCKS TP PRN (03:25)
[2021-04-10] MEDS ORDERED: AMMONIA AROMATIC IH ONE (03:30)
[2021-04-10 04:05] LABS: ABO TYPING A
[2021-04-10 04:08] LABS: RH TYPING NEGATIVE
[2021-04-10 04:25] LABS: ANTIBODY SCREEN POSITIVE (NEGATIVE)
[2021-04-10] MEDS: TYLENOL EXTRA STRENGTH 500 MG PO PRN ×2 (08:43→14:22)
[2021-04-10] MEDS: Colace 100 MG PO SCH ×2 (09:24→21:03)
[2021-04-10] MEDS ORDERED: FERREX 150 PO SCH (10:00)
[2021-04-10 11:44] LABS: Absolute Neutrophil Ct (ANC) 9.56 (1.4-6.9); BASOPHIL % 0.2 % (0.0-0.4); Basophil (Absolute #) 0.02 (0-0.4); Eosinophil % 0.2 % (0.00-5.0); Eosinophil (Absolute #) 0.02 (0-0.5); Hematocrit 23.4 % (35-47); Lymphocyte (Absolute #) 1.47 (1.0-4.6); Lymphocytes % 12.7 % (24.0-44.0); Mean Cell Volume 81.8 fl (78-100); Mean Corpuscular Hemoglobin 24.5 pg (26-32); Mean Corpuscular Hgb Concent. 29.9 g/dl (32-36); Mean Platelet Volume 11.7 fl (7.5-11.0); Monocyte (Absolute #) 0.55 (0.0-1.3); Monocytes % 4.7 % (0.0-12.0); Neutrophil % 82.2 % (36.0-66.0); Platelet Count 129 K/mm3 (150-450); Red Blood Count 2.86 M/mm3 (4.1-5.4); Red Cell Distribution Width 14.9 % (11.5-14.0); White Blood Count 11.6 K/mm3 (4.0-10.5)
[2021-04-10 18:19] LABS: Hematocrit 23.2 % (35-47); Mean Cell Volume 82.9 fl (78-100); Mean Corpuscular Hgb Concent. 30.2 g/dl (32-36); Platelet Count 138 K/mm3 (150-450); Red Cell Distribution Width 14.9 % (11.5-14.0); White Blood Count 11.2 K/mm3 (4.0-10.5)
[2021-04-10 20:35] LABS: Lymphocytes 23 % (24-44); Macrocytosis 1+; Microcytosis 2+; Monocyte 2 % (0.0-12.0); Neutrophils 75 % (36.0-66.0); Nucleated Red Blood Cell 1 %; Platelet Estimate DECREASED (NORMAL); Polychromasia 1+; Total Cells Counted 100
[2021-04-11] MEDS: MOTRIN 400 MG PO PRN ×2 (04:13→21:03)
[2021-04-11] MEDS: FEOSOL 325 MG PO SCH (08:17)
[2021-04-11] MEDS: Colace 100 MG PO SCH ×2 (08:17→21:03)
[2021-04-11] MEDS: TUCKS TP PRN (08:43)
[2021-04-11] MEDS ORDERED: M-M-R II Vaccine With Diluent SQ ONE (10:00)
[2021-04-11] MEDS ORDERED: Rhogam Plus 300 MCG IM ONE (10:00)
[2021-04-11] MEDS: TYLENOL EXTRA STRENGTH 500 MG PO PRN (12:36)
[2021-04-11 13:24] LABS: Hematocrit 23.7 % (35-47); Mean Cell Volume 83.2 fl (78-100); Mean Corpuscular Hemoglobin 24.6 pg (26-32); Mean Corpuscular Hgb Concent. 29.5 g/dl (32-36); Mean Platelet Volume 11.5 fl (7.5-11.0); Platelet Count 147 K/mm3 (150-450); Red Blood Count 2.85 M/mm3 (4.1-5.4); White Blood Count 11.1 K/mm3 (4.0-10.5)
[2021-04-11 17:34] LABS: Eosinophil 2 % (0.00-3.0); Lymphocytes 15 % (24-44); Microcytosis 3+; Monocyte 2 % (0.0-12.0); Neutrophils 81 % (36.0-66.0); Platelet Estimate NORMAL (NORMAL); Total Cells Counted 100
[2021-04-11 17:35] LABS: Hypochromia 1+
[2021-04-12] MEDS ORDERED: STADOL 2 MG ONE (00:41)
--- NOTE | 2021-04-12 08:46 | PCM.DS ---
Discharge Summary Date of Admission: 04/09/21 23:00 Admitting Physician: MAYURI RUIZ Consults: Consults on Case 04/10/21 01:00 Notify Anesthesia Provider PRN 04/10/21 09:47 Navigation ONCE Primary Care Provider: MAYURI RUIZ Allergies Allergies No Known Drug Allergies Allergy (Verified 04/09/21 23:27) Hospital Summary - Hospital Course Hospital Course: patient arrived in spontaneous labor, delivered at 37 4/7 wks EGA, initial hemoglobin 8.4 discharge 7, no symptoms. is going well. - Vitals & Intake/Output Vital Signs: Vital Signs Temperature 98.5 F 04/12/21 02:00 Pulse Rate 80 04/12/21 02:00 Respiratory Rate 16 04/12/21 02:00 Blood Pressure 139/79 04/12/21 02:00 O2 Sat by Pulse Oximetry 98 04/12/21 02:00 Intake & Output: Intake & Output 04/09/21 04/10/21 04/11/21 04/12/21 11:59 11:59 11:59 11:59 Intake Total 2167 1900 2450 Balance 2167 1900 2450 Weight 78.018 kg - Lab Result Diagrams: 04/11/21 13:23 Lab Results-Last 24 Hrs: Lab Results-Last 24 Hours 04/10/21 04/11/21 Range/Units 18:12 13:23 WBC 11.1 H (4.0-10.5) K/mm3 RBC 2.85 L (4.1-5.4) M/mm3 Hgb 7.0 L (12.0-16.0) gm/dl Hct 23.7 L (35-47) % MCV 83.2 (78-100) fl MCH 24.6 L (26-32) pg MCHC 29.5 L (32-36) g/dl RDW 15.0 H (11.5-14.0) % Plt Count 147 L (150-450) K/mm3 MPV 11.5 H (7.5-11.0) fl Segmented Neutrophils 81 H (36.0-66.0) % Lymphocytes (Manual) 15 L (24-44) % Monocytes (Manual) 2 (0.0-12.0) % Eosinophils (Manual) 2 (0.00-3.0) % Hypochromia 1+ Platelet Estimate NORMAL (NORMAL) RBC Morphology ABNORMAL Microcytosis 3+ Smear Path Review Discharge Exam General Appearance: no apparent distress Neurologic Exam: alert, oriented x 3 Respiratory Exam: normal breath sounds, lungs clear, No respiratory distress Cardiovascular Exam: regular rate/rhythm, normal heart sounds Gastrointestinal/Abdomen Exam: soft, No tenderness, No mass Extremity Exam: normal inspection, normal range of motion Skin Exam: normal color, warm, dry Final Diagnosis/Problem List - Final Discharge Diagnosis/Problem (1) Vaginal delivery Current Visit: Yes Status: Acute Code(s): O80 - ENCOUNTER FOR FULL-TERM UNCOMPLICATED DELIVERY (2) Second degree perineal laceration Current Visit: Yes Status: Acute Code(s): O70.1 - SECOND DEGREE PERINEAL LACERATION DURING DELIVERY - Discharge Disposition: Home, Self-Care Condition: Stable Prescriptions: Continue Vits W-Ca,Fe,FA(<1Mg) [] 1 each PO DAILY Ferrous Sulfate [Iron] 325 mg PO BID Follow up with: MAYURI RUIZ MD [Primary Care Provider] -
[2021-04-12] MEDS: Colace 100 MG PO SCH (11:24)
[2021-04-12] MEDS: FEOSOL 325 MG PO SCH (11:24)
== END 2021-04-12 12:45 | disposition home or self-care (01) | DRG 807 ==
LOC: OB 22:40 → OBSVTOIN 23:00
PROVIDERS: ADMIT Family Medicine; ATTEND Family Medicine
PROC: 10E0XZZ Delivery of Products of Conception, External Approach (ICD-10-PCS; principal; 2021-04-10)
PROC: 0KQM0ZZ Repair Perineum Muscle, Open Approach (ICD-10-PCS; 2021-04-10)
DX: O70.1 Second degree perineal laceration during delivery (principal); Z37.0 Single live birth; Z3A.37 37 weeks gestation of pregnancy; D64.9 Anemia, unspecified
CPT/HCPCS: 36415; 80307; 84112; 85025; 85461; 86850; 86900; 86901; 90471; 90707; 96372; G0378; J0595; J2590; J2790; J2795; A9270-GY

== ENCOUNTER 2023-02-13 22:44 | Emergency (ER) | payer OTHER, BC ==
[2023-02-13] MEDS ORDERED: MORPHINE SULFATE 2 MG INJ IV ONE (23:05)
--- NOTE | 2023-02-13 23:05 | ERPHSYRPT ---
- History of Present Illness Time Seen by Provider: 02/13/23 22:54 Historian: patient Exam Limitations: no limitations Physician History: Pt c/o constant 5/10 RLQ abdominal pain for the past 19 hours with nausea. LBM was yesterday & wnl. Pt denies chest pain, SOA, fever. Pt has taken one macrobid so far for a UTI. 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[employer] - Vaccination Dates Date of 2cond Vaccination (if applicable): Comment: STILL NEEDS SECOND DOSE - Review of Systems Constitutional: No Fever Ears, Nose, & Throat: No Throat Pain Respiratory: No Dyspnea Cardiac: No Chest Pain Abdominal/Gastrointestinal: Abdominal Pain, Nausea Genitourinary Symptoms: No Dysuria Neurological: No Headache - Past Medical History Pertinent Past Medical History: No Neurological History: No Pertinent History ENT History: No Pertinent History Cardiac History: No Pertinent History Respiratory History: No Pertinent History Endocrine Medical History: No Pertinent History Musculoskeletal History: No Pertinent History GI Medical History: No Pertinent History History: No Pertinent History Psycho-Social History: No Pertinent History Female Reproductive Disorders: No Pertinent History Other Medical History: States she wore a holter monitor approx 2 years ago for a week and that this didn't indicate anything but "an occassional irregular beat." - Past Surgical History Past Surgical History: Yes Neuro Surgical History: No Pertinent History Cardiac: No Pertinent History Respiratory: No Pertinent History Gastrointestinal: No Pertinent History Genitourinary: No Pertinent History Musculoskeletal: No Pertinent History Female Surgical History: No Pertinent History Other Surgical History: Removal of a fatty tumor to the back of her head. - Social History Smoking Status: Never smoker Exposure to second hand smoke: No Drug Use: none Patient Lives Alone: No Significant Family History: no pertinent family hx - Nursing Vital Signs Nursing Vital Signs: Initial Vital Signs Temperature 99.3 F 09/15/23 22:55 Pulse Rate 79 02/13/23 22:55 Respiratory Rate 18 02/13/23 22:55 Blood Pressure 147/88 02/13/23 22:55 O2 Sat by Pulse Oximetry 98 02/13/23 22:55 Pain Scale Pain Intensity 5 - Physical Exam General Appearance: alert Eye Exam: PERRL/EOMI Ears, Nose, Throat Exam: TMs normal, pharynx normal Neck Exam: normal inspection Respiratory Exam: lungs clear Cardiovascular Exam: normal heart sounds Gastrointestinal/Abdomen Exam: soft, normal bowel sounds, tenderness (mild RLQ tenderness) Extremity Exam: normal inspection Neurologic Exam: alert, cooperative Skin Exam: warm, dry - CT Exams Abdomen/Pelvis CT Interpretation: Tele-radiologist Report (No significant acute abnormality is detected in the abdomen and pelvis.) Ordered Tests: Active Orders 24 hr Category Date Time Status IV Insertion STAT Care 02/13/23 23:05 Active ABDOMEN AND PELVIS W/0 CONTRAS [CT] Stat Exams 02/13/23 23:06 Completed AMYLASE Stat Lab 02/13/23 23:18 Completed CBC W DIFF Stat Lab 02/13/23 23:18 Completed CMP Stat Lab 02/13/23 23:18 Completed CULTURE,URINE Stat Lab 02/13/23 23:16 Received HCG QUALITATIVE, SERUM Stat Lab 02/13/23 23:18 Completed LIPASE Stat Lab 02/13/23 23:18 Completed UA W/RFX UR CULTURE Stat Lab 02/13/23 23:16 Completed Medication Summary Generic Name Dose Route Start Last Admin Trade Name Freq PRN Reason Stop Dose Admin Sodium Chloride 1,000 mls @ 100 mls/hr 02/13/23 23:15 02/13/23 23:21 Sodium Chloride 0.9% 1000 Ml IV 03/15/23 23:14 100 mls/hr .Q10H LEON Administration Discontinued Medications Generic Name Dose Route Start Last Admin Trade Name Freq PRN Reason Stop Dose Admin Morphine Sulfate 2 mg 02/13/23 23:05 02/13/23 23:22 Morphine Sulfate 2 Mg/Ml Inj IV 02/13/23 23:06 2 mg STAT ONE Administration Morphine Sulfate Confirm 02/13/23 23:18 Morphine Sulfate 2 Mg/Ml Inj Administered 02/13/23 23:19 Dose 2 mg .ROUTE .STK-MED ONE Prochlorperazine Edisylate 5 mg 02/13/23 23:07 02/13/23 23:22 Prochlorperazine Edisylate 10 Mg/2 Ml Vial IV 02/13/23 23:08 5 mg STAT ONE Administration Prochlorperazine Edisylate Confirm 02/13/23 23:18 Prochlorperazine Edisylate 10 Mg/2 Ml Vial Administered 02/13/23 23:19 Dose 10 mg .ROUTE .STK-MED ONE Lab/Rad Data: Laboratory Result Diagrams 02/13/23 23:18 02/13/23 23:18 Laboratory Results 02/13/23 02/13/23 02/13/23 Range/Units 23:18 23:18 23:18 WBC 6.5 (4.0-10.5) x10^3/uL RBC 3.93 L (4.1-5.4) x10^6/uL Hgb 11.2 L (12.0-16.0) g/dL Hct 34.6 L (35-47) % MCV 88.0 (78-100) fL MCH 28.5 (26-32) pg MCHC 32.4 (32-36) g/dL RDW 13.3 (11.5-14.0) % Plt Count 251 (150-450) x10^3/uL MPV 10.6 (7.5-11.0) fL Gran % 58.7 (36.0-66.0) % Immature Gran % (Auto) 0.0 (0.00-0.4) % Nucleat RBC Rel Count 0.0 (0.00-0.1) % Eos # (Auto) 0.04 (0-0.5) x10^3/uL Immature Gran # (Auto) 0.00 (0.00-0.03) x10^3u/L Absolute Lymphs (auto) 2.36 (1.0-4.6) x10^3/uL Absolute Monos (auto) 0.26 (0.0-1.3) x10^3/uL Absolute Nucleated RBC 0.00 (0.00-0.01) x10^3u/L Lymphocytes % 36.1 (24.0-44.0) % Monocytes % 4.0 (0.0-12.0) % Eosinophils % 0.6 (0.00-5.0) % Basophils % 0.6 (0.0-0.4) % Absolute Granulocytes 3.84 (1.4-6.9) x10^3/uL Basophils # 0.04 (0-0.4) x10^3/uL Sodium 138 (137-145) mmol/L Potassium 3.8 (3.5-5.1) mmol/L Chloride 105 (98-107) mmol/L Carbon Dioxide 24 (22-30) mmol/L Anion Gap 12.8 (5-15) MEQ/L BUN 8 (7-17) mg/dL Creatinine 0.54 (0.52-1.04) mg/dL Estimated GFR > 60.0 ML/MIN Glucose 96 (74-106) mg/dL Calcium 8.8 (8.4-10.2) mg/dL Total Bilirubin 0.30 (0.2-1.3) mg/dL AST 20 (14-36) U/L ALT 14 (0-35) U/L Alkaline Phosphatase 60 (38-126) U/L Serum Total Protein 7.6 (6.3-8.2) g/dL Albumin 4.6 (3.5-5.0) g/dL Amylase 61 (30-110) U/L Lipase 76 (23-300) U/L Serum HCG, Qual NEGATIVE (NEGATIVE) Urine Color (Yellow) Urine Appearance (Clear) Urine pH (4.6-8.0) Ur Specific [place] (1.005-1.030) Urine Protein (Negative) Urine Glucose (UA) (Negative) mg/dL Urine Ketones (Negative) Urine Blood (Negative) Urine Nitrite (Negative) Urine Bilirubin (Negative) Urine Urobilinogen (0.2) mg/dL Ur Leukocyte Esterase (Negative) U Hyaline Cast (Auto) (0-2) /LPF Urine Microscopic RBC (0-5) /HPF Urine Microscopic WBC (0-5) /HPF Ur Epithelial Cells (None Seen) /HPF Urine Bacteria (None Seen) /HPF Urine Culture Reflexed (NO) 02/13/23 Range/Units 23:16 WBC (4.0-10.5) x10^3/uL RBC (4.1-5.4) x10^6/uL Hgb (12.0-16.0) g/dL Hct (35-47) % MCV (78-100) fL MCH (26-32) pg MCHC (32-36) g/dL RDW (11.5-14.0) % Plt Count (150-450) x10^3/uL MPV (7.5-11.0) fL Gran % (36.0-66.0) % Immature Gran % (Auto) (0.00-0.4) % Nucleat RBC Rel Count (0.00-0.1) % Eos # (Auto) (0-0.5) x10^3/uL Immature Gran # (Auto) (0.00-0.03) x10^3u/L Absolute Lymphs (auto) (1.0-4.6) x10^3/uL Absolute Monos (auto) (0.0-1.3) x10^3/uL Absolute Nucleated RBC (0.00-0.01) x10^3u/L Lymphocytes % (24.0-44.0) % Monocytes % (0.0-12.0) % Eosinophils % (0.00-5.0) % Basophils % (0.0-0.4) % Absolute Granulocytes (1.4-6.9) x10^3/uL Basophils # (0-0.4) x10^3/uL Sodium (137-145) mmol/L Potassium (3.5-5.1) mmol/L Chloride (98-107) mmol/L Carbon Dioxide (22-30) mmol/L Anion Gap (5-15) MEQ/L BUN (7-17) mg/dL Creatinine (0.52-1.04) mg/dL Estimated GFR ML/MIN Glucose (74-106) mg/dL Calcium (8.4-10.2) mg/dL Total Bilirubin (0.2-1.3) mg/dL AST (14-36) U/L ALT (0-35) U/L Alkaline Phosphatase (38-126) U/L Serum Total Protein (6.3-8.2) g/dL Albumin (3.5-5.0) g/dL Amylase (30-110) U/L Lipase (23-300) U/L Serum HCG, Qual (NEGATIVE) Urine Color Yellow (Yellow) Urine Appearance Cloudy A (Clear) Urine pH 7.0 (4.6-8.0) Ur Specific [place] 1.010 (1.005-1.030) Urine Protein Negative (Negative) Urine Glucose (UA) Negative (Negative) mg/dL Urine Ketones Negative (Negative) Urine Blood Negative (Negative) Urine Nitrite Negative (Negative) Urine Bilirubin Negative (Negative) Urine Urobilinogen 1.0 A (0.2) mg/dL Ur Leukocyte Esterase Large A (Negative) U Hyaline Cast (Auto) NONE SEEN (0-2) /LPF Urine Microscopic RBC 0-2 (0-5) /HPF Urine Microscopic WBC 51-100 A (0-5) /HPF Ur Epithelial Cells Moderate A (None Seen) /HPF Urine Bacteria Few A (None Seen) /HPF Urine Culture Reflexed YES (NO) - Progress Progress: unchanged Medical Desision Making - Diagnostic Testing Diagnostic test were ordered, analyzed, and reviewed by me: Yes Radiological Interpretation: Teleradiologist Report - Departure Departure Disposition: Home Clinical Impression: Abdominal pain, UTI (urinary tract infection) Condition: Stable Critical Care Time: No Referrals: ANDREY MCINTYRE NP [Primary Care Provider] - Follow up/PCP as directed Instructions: Urinary tract infections in adults, Abdominal pain Additional Instructions: Follow up with private doctor tomorrow. Finish the rest of your macrobid prescription.
[2023-02-13 23:07] VITALS: TEMP 99.3
[2023-02-13] MEDS ORDERED: Compazine 10 MG/2 ML IV ONE (23:07)
[2023-02-13] MEDS ORDERED: Sodium Chloride 0.9% 1000 ML 1,000 ML IV SCH (23:15)
[2023-02-13] MEDS ORDERED: MORPHINE SULFATE 2 MG INJ ONE (23:18)
[2023-02-13] MEDS ORDERED: Sodium Chloride 0.9% 1000 ML 1,000 ML ONE (23:18)
[2023-02-13] MEDS ORDERED: Compazine 10 MG/2 ML ONE (23:18)
[2023-02-13 23:22] LABS: Absolute Neutrophil Ct (ANC) 3.84 x10^3/uL (1.4-6.9); BASOPHIL % 0.6 % (0.0-0.4); Basophil (Absolute #) 0.04 x10^3/uL (0-0.4); Eosinophil % 0.6 % (0.00-5.0); Eosinophil (Absolute #) 0.04 x10^3/uL (0-0.5); Hematocrit 34.6 % (35-47); Hemoglobin 11.2 g/dL (12.0-16.0); Lymphocyte (Absolute #) 2.36 x10^3/uL (1.0-4.6); Lymphocytes % 36.1 % (24.0-44.0); Mean Corpuscular Hemoglobin 28.5 pg (26-32); Mean Corpuscular Hgb Concent. 32.4 g/dL (32-36); Mean Platelet Volume 10.6 fL (7.5-11.0); Monocyte (Absolute #) 0.26 x10^3/uL (0.0-1.3); Neutrophil % 58.7 % (36.0-66.0); Platelet Count 251 x10^3/uL (150-450); Red Blood Count 3.93 x10^6/uL (4.1-5.4); Red Cell Distribution Width 13.3 % (11.5-14.0); White Blood Count 6.5 x10^3/uL (4.0-10.5)
[2023-02-13 23:29] LABS: Appearance Cloudy (Clear); Bacteria Few /HPF (None Seen); Bilirubin Negative (Negative); Blood Negative (Negative); Epithelial Cells Moderate /HPF (None Seen); Glucose, Urine Negative (Negative); Hyaline Casts NONE SEEN /LPF (0-2); Ketones Negative (Negative); Leukocyte Esterase Large (Negative); Nitrite Negative (Negative); Protein,Urine Dip Negative (Negative); RBC 0-2 /HPF (0-5); WBC 51-100 /HPF (0-5)
[2023-02-13 23:30] LABS: ADD URINE CULTURE? YES (NO)
[2023-02-13 23:37] LABS: ALBUMIN 4.6 g/dL (3.5-5.0); ALKALINE PHOSPHATASE 60 U/L (38-126); AMYLASE 61 U/L (30-110); ANION GAP 12.8 MEQ/L (5-15); BLOOD UREA NITROGEN 8 mg/dL (7-17); CHLORIDE 105 mmol/L (98-107); Calcium 8.8 mg/dL (8.4-10.2); Carbon Dioxide 24 mmol/L (22-30); Creatinine 1 0.54 mg/dL (0.52-1.04); EST GLOMERULAR FILTRATION RATE > 60.0 ML/MIN; Glucose 96 mg/dL (74-106); LIPASE 76 U/L (23-300); Potassium 3.8 mmol/L (3.5-5.1); SGOT/AST 20 U/L (14-36); SGPT/ALT 14 U/L (0-35); SODIUM 138 mmol/L (137-145); Total Protein 7.6 g/dL (6.3-8.2)
[2023-02-13 23:43] LABS: HCG SERUM TEST NEGATIVE (NEGATIVE)
--- NOTE | 2023-02-14 01:36 | XRAY ---
CLINICAL HISTORY:RLQ abdominal pain COMPARISON:None. TECHNIQUE:CT scan of the abdomen and pelvis was performed without IV contrast. Coronal and sagittal reconstructive images were also obtained. FINDINGS: Abdomen: Appendix appears normal. No inflammatory changes are seen in the right iliac fossa region. Few subcentimetric mesenteric nodes noted. The liver is of average size. No focal or diffuse parenchymal abnormality. The portal vein, intrahepatic biliary radicals and the bile ducts are normal. The spleen, pancreas, and adrenal glands are unremarkable. The kidneys are unremarkable. They are normal in size and shape. No calculi or hydronephrosis. The gallbladder is distended. There is no evidence of wall thickening/ pericholecystic collection. The ascending colon, the transverse colon, the descending colon, visualized small bowel loops are unremarkable. There is no evidence of significant enlargement of the mesenteric or retroperitoneal lymph nodes. Pelvis: The urinary bladder is unremarkable. The rectosigmoid colon is unremarkable. The uterus and adnexa appear unremarkable. No evidence of pelvic lymphadenopathy. No definite bony abnormalities could be depicted. IMPRESSION: No significant acute abnormality is detected in abdomen and pelvis Electronically Signed by: Le Pruitt MD. (02/14/2023 00:34:40 [employer]MING PROCESS WORKER)
[2023-02-14] MEDS ORDERED: ROCEPHIN 1 Gm-D5w 50 ml Bag** 1 G/50 ML IVPB IV STA (01:51)
[2023-02-14] MEDS ORDERED: ROCEPHIN 1 Gm-D5w 50 ml Bag** 1 G/50 ML IVPB IV ONE (01:59)
[2023-02-14 02:03] VITALS: BP 120/71; PULSE 85; RESP 16; O2SAT 98
== END 2023-02-14 02:35 | disposition home or self-care (01) ==
LOC: ED 22:44
DX: N39.0 Urinary tract infection, site not specified (principal); R10.31 Right lower quadrant pain; Z79.899 Other long term (current) drug therapy
CPT/HCPCS: 36000; 36415; 74176; 80053; 81001; 82150; 83690; 84703; 85025; 87086; 96365; 96374; 96375; 99284; J0696; J2270

== ENCOUNTER 2024-08-24 10:10 | Emergency (ER) | payer OTHER ==
[2024-08-24 10:37] VITALS: RESP 18; TEMP 97.2; O2SAT 100
[2024-08-24 10:55] LABS: Absolute Neutrophil Ct (ANC) 2.77 x10^3/uL (1.56-6.13); BASOPHIL % 0.9 % (0.1-1.2); Basophil (Absolute #) 0.04 x10^3/uL (0.01-0.08); Eosinophil % 1.5 % (0.7-5.8); Eosinophil (Absolute #) 0.07 x10^3/uL (0.04-0.36); Hematocrit 35.5 % (34.1-44.9); Hemoglobin 11.2 g/dL (11.2-15.7); IMMATURE GRAN # 0.01 x10^3u/L (0.001-0.031); IMMATURE GRAN % 0.2 % (0.001-0.429); Lymphocyte (Absolute #) 1.45 x10^3/uL (1.18-3.74); Lymphocytes % 31.7 % (19.3-51.7); Mean Cell Volume 89.4 fL (79.4-94.8); Mean Corpuscular Hemoglobin 28.2 pg (25.6-32.2); Mean Corpuscular Hgb Concent. 31.5 g/dL (32.2-35.5); Mean Platelet Volume 10.5 fL (9.4-12.3); Monocyte (Absolute #) 0.23 x10^3/uL (0.24-0.86); Neutrophil % 60.7 % (34.0-71.1); Platelet Count 243 x10^3/uL (182-369); Red Blood Count 3.97 x10^6/uL (3.93-5.22); Red Cell Distribution Width 13.8 % (11.7-14.4); White Blood Count 4.6 x10^3/uL (3.98-10.04)
[2024-08-24 11:02] LABS: Appearance Cloudy (Clear); Bacteria None Seen /HPF (None Seen); Bilirubin Negative (Negative); Blood Large (Negative); Epithelial Cells Rare /HPF (None Seen); Glucose, Urine Negative (Negative); Hyaline Casts NONE SEEN /LPF (0-2); Ketones Negative (Negative); Leukocyte Esterase Trace (Negative); Nitrite Negative (Negative); Ph 7.5 (4.6-8.0); Protein,Urine Dip 30 (Negative); RBC >100 /HPF (0-5); Urobilinogen 0.2 mg/dL (0.2)
[2024-08-24 11:05] LABS: ALBUMIN 4.9 g/dL (3.5-5.0); ANION GAP 14.2 MEQ/L (5-15); BILIRUBIN,TOTAL 0.3 mg/dL (0.2-1.3); Creatinine 1 0.56 mg/dL (0.52-1.04); Potassium 4.1 mmol/L (3.5-5.1); Total Protein 7.7 g/dL (6.3-8.2)
[2024-08-24 11:47] VITALS: BP 123/81; PULSE 81
[2024-08-24 12:01] LABS: HCG, Quantitative (Inhouse) 219.82 mIU/ml
--- NOTE | 2024-08-24 12:08 | ERPHSYRPT ---
- History of Present Illness Time Seen by Provider: 08/24/24 10:15 Patient Subjective Stated Complaint: -Sent over by Dr. Valenzuela Triage Nursing Assessment: Patient ambulated back to ED and transferred self to bed. Patient A+O X 3. Patient's skin pink, warm and dry. Patient states she has been seen the past several weeks by Dr. Valenzuela due to bleeding in . Patient has had several beta HCG and ultrasounds. Patient continues to have pain to lower mid pelvic area 3/10 worse when sitting to use restroom. Patient cont to have bleeding. Patient called Dr. Valenzuela's office and she was sent to ER for eval. Physician History: 24 years old 3 para 1 who was at almost 6 weeks gestation when she started to have some spotting, had serial ultrasound done which failed to see if sac, patient's beta-hCG level is dropping, did have a small cyst in 1 of adnexal area, concern for ectopic because of patient having mid pelvic cramping and pain especially with urination. Patient is sent in ER by primary OB. Patient reports off-and-on mid pelvic cramping. Denies passing tissues or heavy bleeding. She has been taking Tylenol/ibuprofen with some symptomatic relief. Allergies/Adverse Reactions: No Known Drug Allergies Allergy (Verified 08/24/24 10:25) Home Medications: No Reportable Medications [No Reported Medications] 08/24/24 [History] Hx Tetanus, Diphtheria Vaccination/Date Given: Yes Hx Influenza Vaccination/Date Given: No Hx Pneumococcal Vaccination/Date Given: No Travel Risk - International Travel Have you traveled outside of the country in past 3 weeks: No - Emerging Infectious Disease Are you exhibiting symptoms associated with any current EIDs: No - Review of Systems Constitutional: No Symptoms Respiratory: No Symptoms Cardiac: No Symptoms Abdominal/Gastrointestinal: No Symptoms Genitourinary Symptoms: Musculoskeletal: No Symptoms Skin: No Symptoms Neurological: No Symptoms Psychological: No Symptoms Endocrine: No Symptoms Hematologic/Lymphatic: No Symptoms Immunological/Allergic: No Symptoms - Past Medical History Pertinent Past Medical History: No Neurological History: No Pertinent History ENT History: No Pertinent History Cardiac History: No Pertinent History Respiratory History: No Pertinent History Endocrine Medical History: No Pertinent History Musculoskeletal History: No Pertinent History GI Medical History: No Pertinent History History: No Pertinent History Psycho-Social History: No Pertinent History Female Reproductive Disorders: No Pertinent History Other Medical History: States she wore a holter monitor approx 2 years ago for a week and that this didn't indicate anything but "an occassional irregular beat." - Past Surgical History Past Surgical History: Yes Neuro Surgical History: No Pertinent History Cardiac: No Pertinent History Respiratory: No Pertinent History Gastrointestinal: No Pertinent History Genitourinary: No Pertinent History Musculoskeletal: No Pertinent History Female Surgical History: No Pertinent History Other Surgical History: Removal of a fatty tumor to the back of her head. Significant Family History: no pertinent family hx - Female History Hx Last Menstrual Period: June 29, 2024 Hx Now: No - Social History Smoking Status: Never smoker Exposure to second hand smoke: No Drug Use: none - Social Determinants of Health Will the patient participate in the screening: Yes Do you worry about a steady place to live?: No Do you have any problems with any of the following?: No known problems In the past 12 months,have you had to go without utilities?: No Transportation Issues: No Has anyone in your support network made you feel unsafe?: No Have you or anyone in your house had to go w/o enough food: No - Nursing Vital Signs Nursing Vital Signs: Initial Vital Signs O2 Sat by Pulse Oximetry 100 08/24/24 10:24 Pain Scale Pain Intensity 3 - Physical Exam General Appearance: no apparent distress Eye Exam: PERRL/EOMI Ears, Nose, Throat Exam: normal ENT inspection Neck Exam: normal inspection, full range of motion Respiratory Exam: normal breath sounds, lungs clear Cardiovascular Exam: regular rate/rhythm, normal heart sounds Gastrointestinal/Abdomen Exam: soft, normal bowel sounds, No tenderness Back Exam: normal inspection, normal range of motion Extremity Exam: normal inspection, normal range of motion Neurologic Exam: alert, oriented x 3, cooperative Skin Exam: normal color SpO2 Interpretation: normal SpO2: 100 O2 Delivery: Room Air Ordered Tests: Active Orders 24 hr Category Date Time Status OB FOLLOW UP PER FETUS [US] Stat Exams 08/24/24 10:39 Completed CBC W DIFF Stat Lab 08/24/24 10:45 Completed CMP Stat Lab 08/24/24 10:45 Completed CULTURE,URINE Stat Lab 08/24/24 10:42 Received HCG, Quantitative (Inhouse) Stat Lab 08/24/24 10:45 Completed UA W/RFX UR CULTURE Stat Lab 08/24/24 10:42 Completed Lab/Rad Data: Laboratory Result Diagrams 08/24/24 10:45 08/24/24 10:45 Laboratory Results 08/24/24 08/24/24 08/24/24 Range/Units 10:45 10:45 10:42 WBC 4.6 (3.98-10.04) x10^3/uL RBC 3.97 (3.93-5.22) x10^6/uL Hgb 11.2 (11.2-15.7) g/dL Hct 35.5 (34.1-44.9) % MCV 89.4 (79.4-94.8) fL MCH 28.2 (25.6-32.2) pg MCHC 31.5 L (32.2-35.5) g/dL RDW 13.8 (11.7-14.4) % Plt Count 243 (182-369) x10^3/uL MPV 10.5 (9.4-12.3) fL Gran % 60.7 (34.0-71.1) % Immature Gran % (Auto) 0.2 (0.001-0.429) % Nucleat RBC Rel Count 0.0 (0.00-0.2) % Eos # (Auto) 0.07 (0.04-0.36) x10^3/uL Immature Gran # (Auto) 0.01 (0.001-0.031) x10^3u/L Absolute Lymphs (auto) 1.45 (1.18-3.74) x10^3/uL Absolute Monos (auto) 0.23 L (0.24-0.86) x10^3/uL Absolute Nucleated RBC 0.00 (0.00-0.012) x10^3u/L Lymphocytes % 31.7 (19.3-51.7) % Monocytes % 5.0 (4.7-12.5) % Eosinophils % 1.5 (0.7-5.8) % Basophils % 0.9 (0.1-1.2) % Absolute Granulocytes 2.77 (1.56-6.13) x10^3/uL Basophils # 0.04 (0.01-0.08) x10^3/uL Sodium 140 (135-145) mmol/L Potassium 4.1 (3.5-5.1) mmol/L Chloride 104 (98-107) mmol/L Carbon Dioxide 25 (22-30) mmol/L Anion Gap 14.2 (5-15) MEQ/L BUN 5 L (7-17) mg/dL Creatinine 0.56 (0.52-1.04) mg/dL Estimated GFR 129.0 ML/MIN Glucose 96 (74-106) mg/dL Calcium 9.0 (8.4-10.2) mg/dL Total Bilirubin 0.30 (0.2-1.3) mg/dL AST 24 (14-36) U/L ALT 17 (0-35) U/L Alkaline Phosphatase 56 (38-126) U/L Serum Total Protein 7.7 (6.3-8.2) g/dL Albumin 4.9 (3.5-5.0) g/dL Beta HCG, Quant 219.82 mIU/ml Urine Color Red A (Yellow) Urine Appearance Cloudy A (Clear) Urine pH 7.5 (4.6-8.0) Ur Specific [place] 1.010 (1.005-1.030) Urine Protein 30 (Negative) Urine Glucose (UA) Negative (Negative) mg/dL Urine Ketones Negative (Negative) Urine Blood Large A (Negative) Urine Nitrite Negative (Negative) Urine Bilirubin Negative (Negative) Urine Urobilinogen 0.2 (0.2) mg/dL Ur Leukocyte Esterase Trace A (Negative) U Hyaline Cast (Auto) NONE SEEN (0-2) /LPF Urine Microscopic RBC >100 A (0-5) /HPF Urine Microscopic WBC 3-5 (0-5) /HPF Ur Epithelial Cells Rare (None Seen) /HPF Urine Bacteria None Seen (None Seen) /HPF Urine Culture Reflexed YES (NO) - Progress Progress: re-examined, unchanged Air Movement: good Progress Note: 08/24/24 12:58 24 years old 3 para 1 at almost 6 weeks gestation with pelvic cramping, vaginal bleeding with dropping of hCG level is is evaluated in the ER for rule out ectopic as patient did have a small cyst in the ovary and has no sac in uterus. Patient is not in any distress, offered pain medication which she declined. Has normal white count, unremarkable chemistries, no UTI, Obtain ultrasound which showed no intrauterine , no signs of ectopic, does have a small cyst in the left ovary which was previously 2.8 cm and today is 2.6 cm. Patient's beta-hCG level is dropping from 818-219. Discussed with patient's primary OB Dr. Valenzuela, reviewed history, workup, recommended discharge with outpatient follow-up as routine and continue with supportive/symptomatic care. I have shared the results of workup with patient and plan of discharge, also discussed signs symptoms of worsening needing return to ER which patient seems understanding. Complexity of problem addressed: Moderate acute Complexity of data reviewed/analyzed,: Extensive Risk of complication/morbidity with current condition: Moderate Blood Culture(s) Obtained: No Antibiotics given: No Discussed with DrYoav: Vincent Counseled pt/family regarding: lab results, diagnosis, need for follow-up, rad results Medical Desision Making - Discussion of managment Care discussed with:: specialist (Dr. Valenzuela) Reviewed:: Test results Agreed on:: Treatment plan, need for follow-up Will see patient: In office - Diagnostic Testing Diagnostic test were ordered, analyzed, and reviewed by me: Yes Radiological Interpretation: Reviewed by me - Departure Departure Disposition: Home Clinical Impression: Miscarriage, Ovarian cyst Condition: Stable Critical Care Time: No Referrals: ANDREY MCINTYRE NP [Primary Care Provider] - Follow up/PCP as directed ASHU VALENZUELA DO [ACTIVE STAFF] - Follow up/PCP as directed (Next week as scheduled) Instructions: loss - ED discharge instructions Additional Instructions: Take Tylenol/ibuprofen as needed. Follow-up with your primary OB for reevaluation early next week as scheduled. Return to ER for worsening of cramping, excessive bleeding, feeling dizzy lightheaded etc.
--- NOTE | 2024-08-24 12:35 | XRAY ---
Indication: Pelvic pain. Two-dimensional transvaginal early OB ultrasound performed. Comparison: August 19, 2024 Uterus again anteverted. Previous intrauterine cystic mass absent. Again no intrauterine pole or heart tones. Left ovary again demonstrates 2.6 cm complex cyst, previously 2.8 cm. Right ovary sonographically unremarkable. Impression: Negative for intrauterine/ectopic . Slightly smaller complex left ovary cyst may be safely followed up.
== END 2024-08-24 13:45 | disposition home or self-care (01) ==
LOC: ED 10:10
DX: O03.9 Complete or unspecified spontaneous abortion without complication (principal); N83.202 Unspecified ovarian cyst, left side
CPT/HCPCS: 36415; 76816; 80053; 81001; 84702; 85025; 87077; 87086; 87186; 99284